=== PATIENT | male | born 1940 | race Caucasian/White ===

== ENCOUNTER 2018-09-17 12:57 | Inpatient (IN) | payer MEDICARE ==
[2018-09-17] MEDS ORDERED: HEPARIN SODIUM,PORCINE 10,000 UNIT/ML 1 ML VIAL IV STA (13:18)
--- NOTE | 2018-09-17 13:25 | ED ---
General Adult HPI - General Chief complaint: Shortness of Breath Stated complaint: Dyspnea Time Seen by Provider: 09/17/18 13:13 Source: patient, RN notes reviewed Mode of arrival: ambulatory Limitations: no limitations - History of Present Illness Initial comments: Patient is a pleasant 78-year-old male presenting to the emergency department with difficulty in breathing. Onset of symptoms was 2 weeks ago. Patient has had persistent symptoms since that time. Dyspnea does get worse with exertion. No chest pain. No leg pain or leg swelling. Patient does have history of pulmonary embolism with similar symptoms around 4 and half years ago. Patient did see his primary care physician and had outpatient computed tomography scan done that was concerning for pulmonary embolism and was advised come to the emergency department. - Related Data Home Medications Medication Instructions Recorded Confirmed Albuterol Sulfate [Proair 1 puff PO RT-Q6H PRN 09/17/18 09/17/18 Respiclick] Aspirin EC [Ecotrin Low Dose] 81 mg PO DAILY 09/17/18 09/17/18 Multivitamins, Thera [Multivitamin 1 tab PO DAILY 09/17/18 09/17/18 (formulary)] Tamsulosin [Flomax] 0.4 mg PO W/SUPPER 09/17/18 09/17/18 Allergies Allergy/AdvReac Type Severity Reaction Status Date / Time No Known Allergies Allergy Verified 09/17/18 13:44 Review of Systems ROS Statement: Those systems with pertinent positive or pertinent negative responses have been documented in the HPI. ROS Other: All systems not noted in ROS Statement are negative. Constitutional: Denies: fever Eyes: Denies: eye pain ENT: Denies: ear pain Respiratory: Reports: dyspnea. 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; skin ca History of Any Multi-Drug Resistant Organisms: None Reported Past Surgical History: Hernia Repair Additional Past Surgical History / Comment(s): cataracts, cyst removed rt chest area and left neck area, pre skin cancer removed, 02-16-14 RT LOWER LOBECTOMY D/T CA Past Anesthesia/Blood Transfusion Reactions: No Reported Reaction Additional Past Anesthesia/Blood Transfusion Reaction / Comment(s): motion sickness years ago Past Psychological History: No Psychological Hx Reported Smoking Status: Former smoker Past Alcohol Use History: None Reported Past Drug Use History: None Reported - Past Family History Mother Family Medical History: Cancer General Exam Limitations: no limitations General appearance: alert, in no apparent distress Head exam: Present: atraumatic Eye exam: Present: normal appearance Neck exam: Present: normal inspection Respiratory exam: Present: normal lung sounds bilaterally Cardiovascular Exam: Present: tachycardia GI/Abdominal exam: Present: soft. Absent: tenderness Extremities exam: Present: normal inspection. Absent: pedal edema, calf tenderness Neurological exam: Present: alert Psychiatric exam: Present: normal affect, normal mood Skin exam: Present: normal color Course Vital Signs 09/17/18 09/17/18 09/17/18 12:58 13:30 14:00 Temperature 98.1 F Pulse Rate 114 H 96 92 Respiratory 26 H 17 18 Rate Blood Pressure 154/90 128/79 134/73 O2 Sat by Pulse 97 97 97 Oximetry EKG Findings - EKG Comments: EKG Findings:: Normal sinus rhythm at 89. VA 164. QRS 70. QT 344. QTC 418. Normal axis. Normal QRS. No acute ST change. Medical Decision Making - Medical Decision Making Case was discussed with Dr. Wilkerson, who will admit. Patient has previously seen Dr. Salas. Patient is made aware of diagnosis and plan. - Lab Data Result diagrams: 09/17/18 13:26 09/17/18 13:26 Lab Results 09/17/18 09/17/18 09/17/18 Range/Units 13:26 13:26 13:26 WBC 8.2 (3.8-10.6) k/uL RBC 4.18 L (4.30-5.90) m/uL Hgb 13.1 (13.0-17.5) gm/dL Hct 39.5 (39.0-53.0) % MCV 94.5 (80.0-100.0) fL MCH 31.4 (25.0-35.0) pg MCHC 33.3 (31.0-37.0) g/dL RDW 12.8 (11.5-15.5) % Plt Count 289 (150-450) k/uL Neutrophils % 75 % Lymphocytes % 15 % Monocytes % 5 % Eosinophils % 3 % Basophils % 1 % Neutrophils # 6.2 (1.3-7.7) k/uL Lymphocytes # 1.2 (1.0-4.8) k/uL Monocytes # 0.4 (0-1.0) k/uL Eosinophils # 0.2 (0-0.7) k/uL Basophils # 0.1 (0-0.2) k/uL PT 9.6 (9.0-12.0) sec INR 0.9 (<1.2) APTT 21.0 L (22.0-30.0) sec Sodium 142 (137-145) mmol/L Potassium 4.5 (3.5-5.1) mmol/L Chloride 107 (98-107) mmol/L Carbon Dioxide 24 (22-30) mmol/L Anion Gap 11 mmol/L BUN 27 H (9-20) mg/dL Creatinine 1.20 (0.66-1.25) mg/dL Est GFR (CKD-EPI)AfAm 66 (>60 ml/min/1.73 sqM) Est GFR (CKD-EPI)NonAf 57 (>60 ml/min/1.73 sqM) Glucose 104 H (74-99) mg/dL Calcium 9.5 (8.4-10.2) mg/dL Total Bilirubin 0.5 (0.2-1.3) mg/dL AST 22 (17-59) U/L ALT 16 L (21-72) U/L Alkaline Phosphatase 83 (38-126) U/L Troponin I (0.000-0.034) ng/mL Total Protein 7.4 (6.3-8.2) g/dL Albumin 4.4 (3.5-5.0) g/dL 09/17/18 Range/Units 13:26 WBC (3.8-10.6) k/uL RBC (4.30-5.90) m/uL Hgb (13.0-17.5) gm/dL Hct (39.0-53.0) % MCV (80.0-100.0) fL MCH (25.0-35.0) pg MCHC (31.0-37.0) g/dL RDW (11.5-15.5) % Plt Count (150-450) k/uL Neutrophils % % Lymphocytes % % Monocytes % % Eosinophils % % Basophils % % Neutrophils # (1.3-7.7) k/uL Lymphocytes # (1.0-4.8) k/uL Monocytes # (0-1.0) k/uL Eosinophils # (0-0.7) k/uL Basophils # (0-0.2) k/uL PT (9.0-12.0) sec INR (<1.2) APTT (22.0-30.0) sec Sodium (137-145) mmol/L Potassium (3.5-5.1) mmol/L Chloride (98-107) mmol/L Carbon Dioxide (22-30) mmol/L Anion Gap mmol/L BUN (9-20) mg/dL Creatinine (0.66-1.25) mg/dL Est GFR (CKD-EPI)AfAm (>60 ml/min/1.73 sqM) Est GFR (CKD-EPI)NonAf (>60 ml/min/1.73 sqM) Glucose (74-99) mg/dL Calcium (8.4-10.2) mg/dL Total Bilirubin (0.2-1.3) mg/dL AST (17-59) U/L ALT (21-72) U/L Alkaline Phosphatase (38-126) U/L Troponin I <0.012 (0.000-0.034) ng/mL Total Protein (6.3-8.2) g/dL Albumin (3.5-5.0) g/dL - Radiology Data Radiology results: report reviewed (Computed tomography scan of the chest was positive for bilateral pulmonary emboli. No evidence of heart strain.) Critical Care Time Critical Care Time: Yes Total Critical Care Time: 33 Disposition Clinical Impression: Pulmonary embolism Disposition: ADMITTED IP TO THIS HOSP Condition: Serious Is patient prescribed a controlled substance at d/c from ED?: No Referrals: Arthur Monique MD [Primary Care Provider] - 1-2 days Decision Time: 15:08
[2018-09-17 13:40] LABS: Basophils # (A) 0.1 k/uL (0-0.2); Basophils % (A) 1 %; Eosinophils # (A) 0.2 k/uL (0-0.7); Eosinophils % (A) 3 %; HCT 39.5 % (39.0-53.0); HGB 13.1 gm/dL (13.0-17.5); Lymphocytes # (A) 1.2 k/uL (1.0-4.8); Lymphocytes % (A) 15 %; MCH 31.4 pg (25.0-35.0); MCHC 33.3 g/dL (31.0-37.0); MCV 94.5 fL (80.0-100.0); Mean Platelet Volume 6.8; Monocytes # (A) 0.4 k/uL (0-1.0); Monocytes % (A) 5 %; Neutrophils # (A) 6.2 k/uL (1.3-7.7); Neutrophils % (A) 75 %; Platelet Count 289 k/uL (150-450); RBC 4.18 m/uL (4.30-5.90); RDW 12.8 % (11.5-15.5); WBC 8.2 k/uL (3.8-10.6)
[2018-09-17 13:42] LABS: Albumin 4.4 g/dL (3.5-5.0); Calcium 9.5 mg/dL (8.4-10.2); Potassium 4.5 mmol/L (3.5-5.1); Total Bilirubin 0.5 mg/dL (0.2-1.3); Total Protein 7.4 g/dL (6.3-8.2)
[2018-09-17] MEDS: HEPARIN SOD,PORK IN 0.45% NACL 25,000 UNIT in 0.45% NACL 1 250ML.BAG IV SCH (13:45)
[2018-09-17 13:55] LABS: INR 0.9 (<1.2); Prothrombin Time 9.6 sec (9.0-12.0)
[2018-09-17] MEDS ORDERED: ALBUTEROL NEBULIZED 2.5 MG/3 ML INHALATION PRN (15:07)
[2018-09-17] MEDS ORDERED: NALOXONE 0.4 MG/ML 1 ML VIAL IV PRN (15:08)
--- NOTE | 2018-09-17 15:19 | P.HPIM ---
History of Present Illness H&P Date: 09/17/18 78 years old very pleasant patient of Dr. Monique with past medical history of PE in 2014, history of BPH is presents with shortness of breath for the past 2 weeks. Patient was seen in urgent care twice before seen by his primary care physician yesterday. Patient is physically very active and walk 10 miles 2 weeks ago and attributed the shortness of breath from overdoing. 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 Since his symptoms did not get better after treatment for bronchitis twice patient went to his primary care physician who suspected a pulmonary embolism and ordered a CTA. A she underwent CTA this morning and was called with abnormal results to come to the ER. He denies any palpitation but does endorse heaviness in his chest. He denies any history of coronary artery disease or previous stress test. Patient did have pulmonary embolism in 2013 with a DVT in his right lower extremity which appears to be unprovoked at that time. He was on blood thinner for over a year which was discontinued and currently patient is only on a baby aspirin. He denies any history of surgery or recent air travel. Patient denies any family history of blood disorder. 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 On evaluation of the vitals, patient has a temp of 98.1 heart rate 114 sinus tachycardia with respiratory rate of 26 blood pressure 154/90 labs suggest an unremarkable CBC, BNP suggestive BUN 27 creatinine 1.2 glucose 104 ALT of 14, troponin 0.012. CTA suggest bilateral pulmonary embolism with large pulmonary embolism in the mid to distal right pulmonary artery additional filling defects were seen in the segmental branch of the left upper lobe and right upper lobe CT findings were consistent with pulmonary artery hypertension no RV strain was seen. Patient also had emphysematous changes with right-sided volume loss with previous right partial pneumonectomy changes. He does have slight right-sided pleural effusion with pleural thickening involving the posterior surface of the right lower lung. Some peripheral reticulation and fibrosis is also noted in the right upper and mid lung. Patient is placed on heparin drip. Pulmonary gynecology is consulted for recurrent pulmonary embolism. Bilateral ultrasound Doppler lower extremity ordered to rule out DVT Review of Systems Constitutional: Denies chills, Denies fever, Denies lethargy, Denies malaise, Denies poor appetite, Denies weakness, Denies weight loss Eyes: denies decreased vision, denies diplopia, denies discharge, denies pain Ears: deny: decreased hearing Ears, nose, mouth and throat: Denies dental pain, Denies headache, Denies nasal discharge, Denies nose pain Cardiovascular: Denies chest pain, Denies decreased exercise tolerance, Denies edema, Denies high blood pressure, Denies irregular heart beat, Denies palpitations, Denies paroxysmal nocturnal dyspnea, Denies rapid heart beat, endorses shortness of breath Respiratory: Denies congestion, Denies cough, Denies cough with sputum, endorses dyspnea, Denies home oxygen, Denies wheezing Gastrointestinal: Denies abdominal pain, Denies change in bowel habits, Denies coffee ground emesis, Denies early satiety, Denies excessive gas, Denies heartburn, Denies hematemesis, Denies hematochezia, Denies loss of appetite, Denies nausea, Denies vomiting Genitourinary: Denies dysuria, Denies flank pain, Denies kidney stones, Denies menorrhagia, Denies urgency, Denies urinary frequency Musculoskeletal: Denies gait dysfunction, Denies limitation of motion, Denies morning stiffness, Denies muscle cramps Integumentary: Denies rash, Denies wounds, Denies brittle nails, Denies change in hair/nails, Denies darkening of skin Neurological: Denies balance difficulties, Denies change in speech, Denies double vision, Denies gait dysfunction, Denies loss of vision, Denies motor disturbance, Denies numbness, Denies paralysis, Denies paresthesias, Denies seizures Psychiatric: Denies anxiety, Denies depression Endocrine: Denies excessive sweating, Denies excessive thirst, Denies high blood sugars, Denies palpitations Hematologic/Lymphatic: Denies easy bruising, Denies lymphadenopathy Past Medical History Past Medical History: Deep Vein Thrombosis (DVT), Pulmonary Embolus (PE), Skin Disorder Additional Past Medical History / Comment(s): 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; skin ca History of Any Multi-Drug Resistant Organisms: None Reported Past Surgical History: Hernia Repair Additional Past Surgical History / Comment(s): cataracts, cyst removed rt chest area and left neck area, pre skin cancer removed, 12-9-14 RT LOWER LOBECTOMY D/T CA Past Anesthesia/Blood Transfusion Reactions: No Reported Reaction Additional Past Anesthesia/Blood Transfusion Reaction / Comment(s): motion sic kness years ago Past Psychological History: No Psychological Hx Reported Smoking Status: Former smoker Past Alcohol Use History: None Reported Past Drug Use History: None Reported - Past Family History Mother Family Medical History: Cancer Medications and Allergies Home Medications Medication Instructions Recorded Confirmed Type Albuterol Sulfate [Proair 1 puff PO RT-Q6H PRN 09/17/18 09/17/18 History Respiclick] Aspirin EC [Ecotrin Low Dose] 81 mg PO DAILY 09/17/18 09/17/18 History Multivitamins, Thera [Multivitamin 1 tab PO DAILY 09/17/18 09/17/18 History (formulary)] Tamsulosin [Flomax] 0.4 mg PO W/SUPPER 09/17/18 09/17/18 History Allergies Allergy/AdvReac Type Severity Reaction Status Date / Time No Known Allergies Allergy Verified 09/17/18 13:44 Physical Exam Vitals: Vital Signs Temp Pulse Resp BP Pulse Ox 09/17/18 14:00 92 18 134/73 97 09/17/18 13:30 96 17 128/79 97 09/17/18 12:58 98.1 F 114 H 26 H 154/90 97 Intake and Output 09/17/18 09/17/18 09/17/18 06:59 14:59 22:59 Other: Weight 65.771 kg - Constitutional General appearance: cooperative, no acute distress, thin - EENT Eyes: anicteric sclerae, PERRLA, normal appearance ENT: hearing grossly normal - Neck Neck: no lymphadenopathy, normal ROM, no other, no rigidity, no stridor, no thyromegaly - Respiratory Respiratory: bilateral: CTA, negative: diminished, dullness, rales, rhonchi - Cardiovascular Rhythm: regular Heart sounds: normal: S1, S2 Abnormal Heart Sounds: no systolic murmur, no diastolic murmur, no rub, no S3 Gallop, no S4 Gallop, no click, no other - Gastrointestinal General gastrointestinal: normal bowel sounds, soft - Integumentary Integumentary: no rash - Neurologic Neurologic: CNII-XII intact - Musculoskeletal Musculoskeletal: gait normal, strength equal bilaterally - Psychiatric Psychiatric: A&O x's 3, appropriate affect Results CBC & Chem 7: 09/17/18 13:26 09/17/18 13:26 Labs: Abnormal Lab Results - Last 24 Hours (Table) 09/17/18 09/17/18 09/17/18 Range/Units 13:26 13:26 13:26 RBC 4.18 L (4.30-5.90) m/uL APTT 21.0 L (22.0-30.0) sec BUN 27 H (9-20) mg/dL Glucose 104 H (74-99) mg/dL ALT 16 L (21-72) U/L Thrombosis Risk Factor Assmnt - DVT/VTE Prophylaxis DVT/VTE Prophylaxis: Pharmacologic Prophylaxis ordered Assessment and Plan Plan: #1 bilateral pulmonary embolism with no RV strain. Hemodynamically stable patient. Echo ordered to evaluate the right-sided pressures. Continue heparin drip. Patient would likely need lifelong anticoagulation as this is the second unprovoked episode. 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 Continue DuoNeb as needed for yolanda rtness of breath. Not in acute exacerbation
--- NOTE | 2018-09-17 15:57 | US ---
EXAMINATION TYPE: US venous doppler duplex LE DATE OF EXAM: 09/17/2018 3:47 PM COMPARISON: NONE CLINICAL HISTORY: PE . PE. Patient is on Heparin now. HX of DVT in right leg 2013. SIDE PERFORMED: Bilateral TECHNIQUE: The lower extremity deep venous system is examined utilizing real time linear array sonog stephan with graded compression, doppler sonography and color-flow sonography. VESSELS IMAGED: External Iliac Vein (EIV) Common Femoral Vein Deep Femoral Vein Greater Saphenous Vein * Femoral Vein Popliteal Vein Small Saphenous Vein * Proximal Calf Veins (* superficial vessels) Grayscale, color doppler, spectral doppler imaging performed of the deep veins of the lower extremiti es. There is normal flow, compressibility, vascular waveforms on the right. Right Leg: Negative for DVT Left Leg: Positive for DVT from Proximal Popliteal Vein to Proximal calf veins. Thready flow visual ized with internal echoes seen within, noncompressible. IMPRESSION: 1. Positive deep venous thrombosis extending from the popliteal vein to the proximal calf veins on th e left. The patient is currently on heparin with known prior DVT and current PE. 2. No sonographic evidence of deep venous thrombosis within the right lower extremity.
[2018-09-17] MEDS: SODIUM CHLORIDE 0.9% 1,000 ML IV SCH (15:58)
[2018-09-17] MEDS: TAMSULOSIN 0.4 MG CAP.ER.24H PO SCH (18:01)
[2018-09-18 06:27] LABS: Basophils # (A) 0.1 k/uL (0-0.2); Basophils % (A) 1 %; Eosinophils # (A) 0.3 k/uL (0-0.7); Eosinophils % (A) 6 %; HCT 31.8 % (39.0-53.0); HGB 10.4 gm/dL (13.0-17.5); Lymphocytes # (A) 1.4 k/uL (1.0-4.8); Lymphocytes % (A) 27 %; MCH 31.4 pg (25.0-35.0); MCHC 32.7 g/dL (31.0-37.0); MCV 95.9 fL (80.0-100.0); Mean Platelet Volume 7.1; Monocytes # (A) 0.3 k/uL (0-1.0); Monocytes % (A) 5 %; Neutrophils # (A) 3.1 k/uL (1.3-7.7); Neutrophils % (A) 58 %; Platelet Count 217 k/uL (150-450); RBC 3.32 m/uL (4.30-5.90); RDW 12.9 % (11.5-15.5); WBC 5.4 k/uL (3.8-10.6)
[2018-09-18 07:32] LABS: Albumin 3.2 g/dL (3.5-5.0); Calcium 8.8 mg/dL (8.4-10.2); Potassium 4.5 mmol/L (3.5-5.1); Total Bilirubin 0.4 mg/dL (0.2-1.3); Total Protein 5.7 g/dL (6.3-8.2)
--- NOTE | 2018-09-18 10:22 | ECHOF ---
Referral Reason:CHF MEASUREMENTS -------- HEIGHT: 180.3 cm WEIGHT: 65.8 kg BP: 122/82 IVSd: 1.5 cm (0.6 - 1.1) LVIDd: 3.4 cm (3.9 - 5.3) LVPWd: 1.6 cm (0.6 - 1.1) IVSs: 1.7 cm LVIDs: 2.0 cm LVPWs: 1.5 cm LAESV Index (A-L): 15.30 ml/m Ao Diam: 2.7 cm (2.0 - 3.7) AV Cusp: 1.9 cm (1.5 - 2.6) LA Diam: 3.1 cm (2.7 - 3.8) MV EXCURSION: 13.189 mm (> 18.000) MV EF SLOPE: 45 mm/s (70 - 150) EPSS: 1.6 cm MV E Francisco: 0.41 m/s MV DecT: 389 ms MV A Francisco: 0.62 m/s MV E/A Ratio: 0.67 AR PHT: 518 ms FINDINGS -------- Sinus rhythm. This was a technically difficult study with suboptimal parasternal views. The left ventricular size is normal. There is moderate concentric left ventricular hypertrophy. O verall left ventricular systolic function is normal with, an EF between 65 - 70 %. The right ventricle is normal in size. Normal LA size by volume 22+/-6 ml/m2. The right atrium was not well visualized. Lumason used Interatrial and interventricular septum intact. The aortic valve was not well visualized. Trace to mild aortic regurgitation. There is no evidenc e of aortic stenosis. No mitral regurgitation. Mild tricuspid regurgitation present. There is no evidence of pulmonary hypertension. The right v entricular systolic pressure, as measured by Doppler, is {RVSP}. The pulmonic valve was not well visualized. The aortic root size is normal. Normal inferior vena cava with normal inspiratory collapse consistent with estimated right atrial pre ssure of 5 mmHg. There is no pericardial effusion. CONCLUSIONS -------- 1. Sinus rhythm. 2. This was a technically difficult study with suboptimal parasternal views. 3. The left ventricular size is normal. 4. There is moderate concentric left ventricular hypertrophy. 5. Overall left ventricular systolic function is normal with, an EF between 65 - 70 %. 6. The right ventricle is normal in size. 7. Normal LA size by volume 22+/-6 ml/m2. 8. The right atrium was not well visualized. 9. Lumason used 10. Interatrial and interventricular septum intact. 11. The aortic valve was not well visualized. 12. Trace to mild aortic regurgitation. 13. There is no evidence of aortic stenosis. 14. No mitral regurgitation. 15. Mild tricuspid regurgitation present. 16. There is no evidence of pulmonary hypertension. 17. The right ventricular systolic pressure, as measured by Doppler, is {RVSP}. 18. The pulmonic valve was not well visualized. 19. The aortic root size is normal. 20. Normal inferior vena cava with normal inspiratory collapse consistent with estimated right atrial pressure of 5 mmHg. 21. There is no pericardial effusion. STUDIO DATA ANALYST: Sarai Bhakta RDCS
[2018-09-18 11:36] VITALS: RESP 18; TEMP 97.7
[2018-09-18] MEDS: HEPARIN SOD,PORK IN 0.45% NACL 25,000 UNIT in 0.45% NACL 1 250ML.BAG IV SCH (11:46)
[2018-09-18] MEDS: SODIUM CHLORIDE 0.9% 1,000 ML IV SCH (11:48)
[2018-09-18] MEDS: RIVAROXABAN 15 MG TAB PO SCH ×2 (12:33→16:17)
[2018-09-18] MEDS: IOPAMIDOL-300 CONTRAST 30 ML VIAL (ORAL USE) PO PRN ×2 (12:38→13:40)
--- NOTE | 2018-09-18 14:16 | P.CNPUL ---
History of Present Illness Consult date: 09/18/18 Requesting physician: Víctor Nicole Reason for consult: pulmonary embolism Chief complaint: Dyspnea, bilateral pulmonary embolisms History of present illness: This is a 78-year-old white male patient of Dr. 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 Patient is a former smoker, smoked less than a pack a day for 15 years, quit smoking 40 years ago. Other medical history includes atrial fibrillation back in 2013 after a diagnosis of pulmonary embolism, patient was anticoagulated with Xarelto, and completed his anticoagulation therapy. Patient presented to his primary care physician yesterday on 09/17/2018 with 2 week history of shortness of breath and some chest heaviness. Denied any hemoptysis, denied any lightheadedness or dizziness, denied any pain or swelling in his legs. He noticed significantly shortness of breath 2 weeks ago just walking from his bed to the bathroom, he had a 10 mile walk event, which he was able to complete but patient was in significant amount of respiratory difficulty. 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 He was treated in the urgent care clinic for debility of tracheobronchitis. However his symptoms did not improve and patient was seen by Dr. Lyon yesterday he suspected a pulmonary embolism and ordered a CT angiogram of the chest. CT angiogram showed bilateral pulmonary embolisms with large pulmonary embolism in the mid to distal right pulmonary artery with additional filling defects seen in the segmental branch of the left upper lobe and a right upper lobe. CT findings were consistent with pulmonary artery hypertension, but no RV strain was seen. Patient also had emphysematous changes with a right-sided volume loss with previous right partial pneumonectomy barrios es. There was a slight right sided pleural effusion with pleural thickening involving the posterior surface of the right lower lung. Bilateral ultrasound Dopplers of the lower extremities revealed a DVT in the left lower extremity extending from the popliteal vein to the proximal calf veins on the left. Echocardiogram was completed showing an EF between 65-70%, no evidence of PAH, trace to mild aortic regurgitation, normal inferior vena cava with normal respiratory collapse consistent with estimated right atrial pressure of 5 mmHg. And there was no pericardial effusion. EKG showed normal sinus rhythm. Patient has been started on heparin. Currently resting comfortably in bed, on room air, with a pulse ox of 96%, denies shortness of breath, denies any chest heaviness on today's exam, physical exam is unremarkable. Review of Systems All systems: negative Constitutional: Denies chills, Denies fever Eyes: denies blurred vision, denies pain Ears, nose, mouth and throat: Denies headache, Denies sore throat Cardiovascular: Denies chest pain, Denies shortness of breath Respiratory: Reports dyspnea, Denies cough Gastrointestinal: Denies abdominal pain, Denies diarrhea, Denies nausea, Denies vomiting Musculoskeletal: Denies myalgias Integumentary: Denies pruritus, Denies rash Neurological: Denies numbness, Denies weakness Psychiatric: Denies anxiety, Denies depression Endocrine: Denies fatigue, Denies weight change 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; skin ca History of Any Multi-Drug Resistant Organisms: None Reported Past Surgical History: Hernia Repair Additional Past Surgical History / Comment(s): cataracts, cyst removed rt chest area and left neck area, pre skin cancer removed, 02-16-14 RT LOWER LOBECTOMY D/T CA Past Anesthesia/Blood Transfusion Reactions: No Reported Reaction Additional Past Anesthesia/Blood Transfusion Reaction / Comment(s): motion sickness years ago Past Psychological History: No Psychological Hx Reported Smoking Status: Former smoker Past Alcohol Use History: None Reported Past Drug Use History: None Reported - Past Family History Mother Family Medical History: Cancer Medications and Allergies Home Medications Medication Instructions Recorded Confirmed Type Albuterol Sulfate [Proair 1 puff PO RT-Q6H PRN 09/17/18 09/17/18 History Respiclick] Aspirin EC [Ecotrin Low Dose] 81 mg PO DAILY 09/17/18 09/17/18 History Multivitamins, Thera [Multivitamin 1 tab PO DAILY 09/17/18 09/17/18 History (formulary)] Tamsulosin [Flomax] 0.4 mg PO W/SUPPER 09/17/18 09/17/18 History Rivaroxaban [Xarelto Starter Pack] 1 each PO DIRECTED #49 tab 09/18/18 Rx Allergies Allergy/AdvReac Type Severity Reaction Status Date / Time No Known Allergies Allergy Verified 09/17/18 13:44 Physical Exam Vitals: Vital Signs Temp Pulse Pulse Resp BP BP Pulse Ox 09/18/18 11:36 97.7 F 86 18 151/70 96 09/18/18 08:45 97.1 F L 73 22 139/69 100 09/18/18 04:00 97.6 F 64 18 117/70 98 09/17/18 23:13 63 18 09/17/18 23:11 98.2 F 63 18 124/74 97 09/17/18 20:09 98.1 F 74 18 153/74 97 09/17/18 20:00 74 18 09/17/18 18:30 98.2 F 09/17/18 18:01 90 19 130/66 96 09/17/18 15:48 76 18 122/82 98 09/17/18 14:00 92 18 134/73 97 Intake and Output 09/17/18 09/18/18 09/18/18 22:59 06:59 14:59 Intake Total 89.187 241.066 54.008 Output Total 350 Balance 89.187 -108.934 54.008 Intake: Intake, IV Titration 89.187 241.066 54.008 Amount Heparin Sod,Pork in 0.45% 89.187 81.066 54.008 NaCl 25,000 unit In 0.45 % NaCl 1 250ml.bag @ 18 UNITS/KG/HR 11.839 mls/hr IV .Q21H7M [facility] Rx#: [id number] Sodium Chloride 0.9% 1, 160 000 ml @ 20 mls/hr IV . Q24H [facility] Rx#:[id number] Output: Urine 350 Other: Voiding Method Urinal Urinal Toilet Urinal # Voids 1 Weight 55.9 kg GENERAL EXAM: Alert, pleasant, 78-year-old white male on room air, with a pulse ox of 96% comfortable in no apparent distress. HEAD: Normocephalic/atraumatic. EYES: Normal reaction of pupils, equal size. Conjunctiva pink, sclera white. NOSE: Clear with pink turbinates. THROAT: No erythema or exudates. NECK: No masses, no JVD, no thyroid enlargement, no adenopathy. CHEST: No chest wall deformity. Symmetrical expansion. LUNGS: Equal air entry with no crackles, wheeze, rhonchi or dullness. CVS: Regular rate and rhythm, normal S1 and S2, no gallops, no murmurs, no rubs ABDOMEN: Soft, nontender. No hepatosplenomegaly, normal bowel sounds, no guarding or rigidity. EXTREMITIES: No clubbing, no edema, no cyanosis, 2+ pulses and upper and lower extremities. MUSCULOSKELETAL: Muscle strength and tone normal. SPINE: No scoliosis or deformity SKIN: No rashes CENTRAL NERVOUS SYSTEM: Alert and oriented -3. No focal deficits, tone is norm al in all 4 extremities. PSYCHIATRIC: Alert and oriented -3. Appropriate affect. Intact judgment and insight. Results - Laboratory Findings CBC and BMP: 09/18/18 05:58 09/18/18 05:58 PT/INR, D-dimer PT 9.6 sec (9.0-12.0) 09/17/18 13:26 INR 0.9 (<1.2) 09/17/18 13:26 Abnormal lab findings: Abnormal Labs 09/17/18 09/17/18 09/17/18 13:26 13:26 13:26 RBC 4.18 L Hgb Hct APTT 21.0 L Chloride BUN 27 H Glucose 104 H ALT 16 L Total Protein Albumin 09/17/18 09/18/18 09/18/18 20:08 05:58 05:58 RBC 3.32 L Hgb 10.4 L Hct 31.8 L APTT 129.9 H* Chloride 110 H BUN 23 H Glucose ALT 20 L Total Protein 5.7 L Albumin 3.2 L 09/18/18 05:58 RBC Hgb Hct APTT 77.7 H Chloride BUN Glucose ALT Total Protein Albumin - Diagnostic Findings CT scan - chest: report reviewed, image reviewed Additional studies: Echocardiogram results reviewed, EKG reviewed Assessment and Plan Plan: Assessment: #1. Acute bilateral pulmonary emboli, unprovoked, with no evidence of RV strain on the CTA chest and the echocardiogram. This is second episode of pulmonary embolism/DVT. #2. 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 History of atrial fibrillation in 2014 following right lobectomy, patient denies any recurrence of atrial fibrillation #4. History of BPH, recently started on Flomax #5. Recent history of tooth extraction 2 weeks ago #6. Emphysematous changes seen on the CTA chest #7. History of nicotine dependence, currently in remission, patient carries 15 years of smoking of less than a pack a day quit smoking 40 years ago Plan: We'll continue with heparin, which the patient to Eliquis or Xarelto, continue with nebulized bronchodilators, CTA chest and echocardiogram did not show evidence of RV strain, and is hemodynamically stable, maintaining oxygenation on room air, hematology evaluation pending, and CT of abdomen and pelvis is pending. Patient will need lifelong anticoagulation for her history of recurrent pulmonary embolism and DVTs. I performed a history & physical examination of the patient and discussed their management with my nurse practitioner, Nancy Rosales. I reviewed the nurse practitioner's note and agree with the documented findings and plan of care. Lung sounds are positive for diminished breath sounds throughout the lung vogt. The findings and the impression was discussed with the patient. I attest to the documentation by the nurse practitioner. Time with Patient: Greater than 30
[2018-09-18 16:09] VITALS: BP 146/70; PULSE 70
[2018-09-18] MEDS: TAMSULOSIN 0.4 MG CAP.ER.24H PO SCH (16:17)
--- NOTE | 2018-09-18 16:54 | CT ---
EXAMINATION TYPE: CT abdomen pelvis w con DATE OF EXAM: 09/18/2018 COMPARISON: None HISTORY: Cancer recurrence. CT DLP: 615.2 mGycm Automated exposure control for dose reduction was used. TECHNIQUE: Helical acquisition of images was performed from the lung bases through the pelvis. CONTRAST: Performed with Oral Contrast and with IV Contrast, patient injected with 80 mL of Isovue 300. FINDINGS: There is small pleural effusion. There is a 2 cm partly calcified masslike density that is only incom pletely visualized at the right posterior lung base. Heart size is normal. There is no pericardial ef fusion. There is a 1 cm cyst in the inferior right lobe of the liver. The bile ducts are not dilated. Gallbla dder appears normal. Spleen appears normal. There is mild bulkiness of the pancreatic head. The body and tail of the pancreas appear fairly normal. Pancreatic duct not dilated. Stomach is normal size an d contour. There is no adrenal mass. There is some hypertrophy of the left adrenal gland. There is no hydronephr osis. Kidneys show satisfactory contrast opacification. Ureters are not dilated. There are small left -sided renal parapelvic cysts. There is no retroperitoneal adenopathy. Bladder distends smoothly. Pro state measures 5.5 cm. There is no inguinal hernia. There is no ascites. There is no evidence of free air. I see no mesenteric edema. The lumbar vertebra have normal alignment. There is narrowing at L5-S1 disc space. There is posterior disc herniation at L5-S1 with calcification. The bony pelvis appears intact. I see no focal bone ghanshyam truction. IMPRESSION: THERE IS SMALL MASSLIKE INFILTRATE RIGHT LOWER LOBE. THIS APPEARS UNCHANGED COMPARED TO CT SCAN YESTE RDAY. THERE IS MILD BULKINESS OF THE PANCREATIC HEAD WITHOUT A DISCRETE MASS SEEN. COMPARISON WITH AN OLD EXAM WOULD BE HELPFUL.
--- NOTE | 2018-09-19 00:25 | P.CONS ---
History of Present Illness - Reason for Consult Consult date: 09/19/18 recurrent PE. History of carcinoid - History of Present Illness the patient is a 78-year old white male with multiple medical issues. The patient had an unprovoked PE and left lower extremity DVT in July 2013. He was treated with xarelto at that time. He did not recall any provoking factors. He was subsequently found to have a right lung mass later in 2013 (12/22) and subsequently underwent resection with no additional treatment required. CT scans about 6 months after the PE or negative. The patient was therefore taken off anticoagulation after about a year. The patient came into the emergency room complaining of progressive shortness of breath, quite progressive over the past week. 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 In the emergency room CT revealed bilateral PE. Patient was started on IV heparin. Doppler showed persistent DVT involving the left popliteal and upper calf veins some 30 flow suggestive of a chronic process In doesn't appear that the patient has had any surveillance after surgery for his carcinoid. He has no family history of DVT or PE. He could not recall any provoking factors for this current event. Review of Systems Constitutional: Reports fatigue, Denies chills, Denies fever Eyes: denies blurred vision, denies pain Ears: deny: decreased hearing, ear discharge, earache, tinnitus Ears, nose, mouth and throat: Denies headache, Denies sore throat Cardiovascular: Reports shortness of breath Respiratory: Reports as per HPI Gastrointestinal: Denies abdominal pain, Denies diarrhea, Denies nausea, Denies vomiting Genitourinary: Reports as per HPI Musculoskeletal: Reports muscle weakness Integumentary: Denies pruritus, Denies rash Neurological: Reports weakness, Reports visual changes Psychiatric: Denies anxiety, Denies depression Endocrine: Reports fatigue, Denies weight change Hematologic/Lymphatic: Reports as per HPI 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; skin ca History of Any Multi-Drug Resistant Organisms: None Reported Past Surgical History: Hernia Repair Additional Past Surgical History / Comment(s): cataracts, cyst removed rt chest area and left neck area, pre skin cancer removed, 02-16-14 RT LOWER LOBECTOMY D/T CA Past Anesthesia/Blood Transfusion Reactions: No Reported Reaction Additional Past Anesthesia/Blood Transfusion Reaction / Comm: motion sickness years ago Past Psychological History: No Psychological Hx Reported Smoking Status: Former smoker Past Alcohol Use History: None Reported Past Drug Use History: None Reported - Past Family History Mother Family Medical History: Cancer Medications and Allergies Home Medications Medication Instructions Recorded Confirmed Type Albuterol Sulfate [Proair 1 puff PO RT-Q6H PRN 09/17/18 09/17/18 History Respiclick] Aspirin EC [Ecotrin Low Dose] 81 mg PO DAILY 09/17/18 09/17/18 History Multivitamins, Thera [Multivitamin 1 tab PO DAILY 09/17/18 09/17/18 History (formulary)] Tamsulosin [Flomax] 0.4 mg PO W/SUPPER 09/17/18 09/17/18 History Rivaroxaban [Xarelto Starter Pack] 1 each PO DIRECTED #49 tab 09/18/18 Rx Allergies Allergy/AdvReac Type Severity Reaction Status Date / Time No Known Allergies Allergy Verified 09/17/18 13:44 Physical Exam Vitals: Vital Signs Temp Pulse Resp BP Pulse Ox 09/18/18 16:08 97.7 F 70 18 146/70 100 09/18/18 16:04 86 18 09/18/18 11:36 97.7 F 86 18 151/70 96 09/18/18 08:45 97.1 F L 73 22 139/69 100 09/18/18 04:00 97.6 F 64 18 117/70 98 Intake and Output 09/18/18 09/18/18 09/19/18 14:59 22:59 06:59 Intake Total 894.008 Output Total 550 Balance 344.008 Intake: Intake, IV Titration 294.008 Amount Heparin Sod,Pork in 0.45% 54.008 NaCl 25,000 unit In 0.45 % NaCl 1 250ml.bag @ 18 UNITS/KG/HR 11.839 mls/hr IV .Q21H7M [facility] Rx#: [id number] Sodium Chloride 0.9% 1, 240 000 ml @ 20 mls/hr IV . Q24H [facility] Rx#:[id number] Oral 600 Output: Urine 550 Other: Voiding Method Toilet Toilet Urinal Urinal # Voids 2 # Bowel Movements 1 Results CBC & Chem 7: 09/18/18 05:58 09/18/18 05:58 Labs: Abnormal Lab Results - Last 24 Hours (Table) 09/18/18 09/18/18 09/18/18 Range/Units 05:58 05:58 05:58 RBC 3.32 L (4.30-5.90) m/uL Hgb 10.4 L (13.0-17.5) gm/dL Hct 31.8 L (39.0-53.0) % APTT 77.7 H (22.0-30.0) sec Chloride 110 H (98-107) mmol/L BUN 23 H (9-20) mg/dL ALT 20 L (21-72) U/L Total Protein 5.7 L (6.3-8.2) g/dL Albumin 3.2 L (3.5-5.0) g/dL Chest x-ray: report reviewed CT Scan - head: report reviewed Venous US: report reviewed Assessment and Plan (1) Pulmonary embolism Narrative/Plan: The patient has had a second episode of pulmonary embolus which is unprovoked. This is definitely a new occurrence, as CT scans in late 2013 after his initial be had not shown any residual thrombus. The patient is currently on IV heparin, which is quite appropriate in the inpatient setting. He can be transferred over to oral anticoagulant for discharge. One of the NOACs would be appropriate for him if covered. It was discussed with him that based on the clinical presentation, lifelong anticoagulation would be recommended as long as the patient had no tolerance issues. Given his prior history, CT of the abdomen and pelvis to be ordered to rule out recurrent malignancy. Chromogranin and serotonin level will also be ordered If workup for malignancy is negative another possibility could be an intrinsic hypercoagulable state. Testing for the same, as an outpatient was discussed. The patient was advised that the results would have no implications on his management but could potentially have implications for family members. He states that he had no biological children and only has one surviving sister he did therefore at this time is not sure if he would opt to do a hypercoagulable workup at all. Case discussed in detail with the admitting service. From our standpoint the patient never discharge on oral and declaration in follow-up in the office in about 4-5 weeks Status: Acute Code(s): I26.99 - OTHER PULMONARY EMBOLISM WITHOUT ACUTE COR PULMONALE SNOMED Code(s): 33037859 (2) Carcinoid tumor Narrative/Plan: Resection in 2013. This is usually curative for localized carcinoid. No carcinoid is less associated with risk of DVT/PE, given the patient's history it would be reasonable to restage him with CT scan of the abdomen and pelvis, as well as cytokine levels. If these are also negative and Octreoscan as an outpatient can be considered. If negative, continue to follow with observation until about 5 years post surgery for Status: Acute Code(s): D3A.00 - BENIGN CARCINOID TUMOR OF UNSPECIFIED SITE SNOMED Code(s): 121043327
--- NOTE | 2018-09-19 08:22 | P.DS ---
Providers Date of admission: 09/17/18 15:08 Expected date of discharge: 09/18/18 Attending physician: Víctor Nicole MD Consults: 09/17/18 15:08 Consult Physician Routine Consulting Provider: Cody Carrillo Consult Reason/Comments: B/l PE Do you want consulting provider notified?: Yes Consult Physician Routine Consulting Provider: Kendell Lennon Consult Reason/Comments: recurrent unprovoked PE Do you want consulting provider notified?: Yes Primary care physician: Arthur Monique [facility] Course: 78 years old very pleasant patient of Dr. Monique with past medical history of PE in 2014, history of BPH is presents with shortness of breath for the past 2 weeks. Patient was seen in urgent care twice before seen by his primary care physician yesterday. Patient is physically very active and walk 10 miles 2 weeks ago and attributed the shortness of breath from overdoing. 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 Since his symptoms did not get better after treatment for bronchitis twice patient went to his primary care physician who suspected a pulmonary embolism and ordered a CTA. A she underwent CTA this morning and was called with abnormal results to come to the ER. He denies any palpitation but does endorse heaviness in his chest. He denies any history of coronary artery disease or previous stress test. Patient did have pulmonary embolism in 2013 with a DVT in his right lower extremity which appears to be unprovoked at that time. He was on blood thinner for over a year which was discontinued and currently patient is only on a baby aspirin. He denies any history of surgery or recent air travel. Patient denies any family history of blood disorder. 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 On evaluation of the vitals, patient has a temp of 98.1 heart rate 114 sinus tachycardia with respiratory rate of 26 blood pressure 154/90 lab s suggest an unremarkable CBC, BNP suggestive BUN 27 creatinine 1.2 glucose 104 ALT of 14, troponin 0.012. CTA suggest bilateral pulmonary embolism with large pulmonary embolism in the mid to distal right pulmonary artery additional filling defects were seen in the segmental branch of the left upper lobe and right upper lobe CT findings were consistent with pulmonary artery hypertension no RV strain was seen. Patient also had emphysematous changes with right-sided volume loss with previous right partial pneumonectomy changes. He does have slight right-sided pleural effusion with pleural thickening involving the posterior surface of the right lower lung. Some peripheral reticulation and fibrosis is also noted in the right upper and mid lung. Patient is placed on heparin drip. Pulmonary gynecology is consulted for recurrent pulmonary embolism. Bilateral ultrasound Doppler lower extremity ordered to rule out DVT 09/18: Patient has been seen in consultation by pulmonary medicine and Dr. Lennon. CT of the abdomen and pelvis was ordered. Chromogranin and serotonin levels also ordered. Dr. Lennon's concern that malignancy as a cause for his DVT. If all workup for malignancy is negative physical be intrinsic hypercoagulopathy state. He will do outpatient testing as indicated. Patient is to follow-up with Dr. Lennon and 4-5 weeks. Regarding the carcinoid tumor, it is less associated with risk of DVT and PE. Plan to restage with CAT scan of the abdomen and pelvis as well as site candace levels. If these are negative and Octreoscan as an outpatient can be considered. Patient denies any new complaints. His shortness of breath is controlled. He is currently off oxygen and pulsating 96-100% on room air. He has been afebrile, heart rate in the 70s, blood pressure 146/70. A repeat lab work reveals hemoglobin of 10.4. BUN 23 and creatinine 1.18. The patient will be transitioned to Xarelto and discharge home later today. In stable condition. Venous Doppler duplex of the lower extremity bilaterally was positive for DVT popliteal vein on the left. No DVT on the right lower extremity. Echocardiogram revealed EF of 65-70% with moderate concentric left ventricular hypertrophy, trace to mild aortic regurgitation, no aortic stenosis, no mitral regurgitation, no tricuspid regurgitation no pulmonary hypertension estimated right atrial pressure 5 mmHg. No pericardial effusion. CT of the abdomen and pelvis revealed small masslike infiltrate in the right lower lobe. This appears unchanged compared to CAT scan yesterday. Mild bulkiness of the pancreatic head without a discrete mass seen. Comparison with old exam would be helpful. Discharge diagnoses: #1 bilateral pulmonary embolism with no RV strain. 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 Discharge plan: Return home Impression and plan of care have been directed as dictated by the signing physician. Anne-Marie Jacobs nurse practitioner acting as scribe for signing physician. Patient Condition at Discharge: Good Plan - Discharge Summary Discharge Rx Participant: No New Discharge Prescriptions: New Rivaroxaban [Xarelto Starter Pack] 1 each PO DIRECTED #49 tab No Action Multivitamins, Thera [Multivitamin (formulary)] 1 tab PO DAILY Aspirin EC [Ecotrin Low Dose] 81 mg PO DAILY Tamsulosin [Flomax] 0.4 mg PO W/SUPPER Albuterol Sulfate [Proair Respiclick] 1 puff PO RT-Q6H PRN PRN Reason: Shortness Of Breath Discharge Medication List Albuterol Sulfate [Proair Respiclick] 1 puff PO RT-Q6H PRN 09/17/18 [History] Aspirin EC [Ecotrin Low Dose] 81 mg PO DAILY 09/17/18 [History] Multivitamins, Thera [Multivitamin (formulary)] 1 tab PO DAILY 09/17/18 [History] Tamsulosin [Flomax] 0.4 mg PO W/SUPPER 09/17/18 [History] Rivaroxaban [Xarelto Starter Pack] 1 each PO DIRECTED #49 tab 09/18/18 [Rx] Follow up Appointment(s)/Referral(s): Kendell Lennon MD [STAFF PHYSICIAN] - 4 Weeks (Dr Lennon's office will follow-up with the patient to schedule an appointment after speaking with Dr Lennon.) Arthur Monique MD [Primary Care Provider] - 09/25/18 8:45 am (Appointment is with Olga GARCIA) Patient Instructions/Handouts: Pulmonary Embolism (DC) Activity/Diet/Wound Care/Special Instructions: Xarelto covered with a $40 copay Discharge Disposition: HOME SELF-CARE
[2018-09-22 20:10] LABS: Chromogranin A 357 ng/mL (0-95)
== END 2018-09-18 16:42 | disposition home or self-care (01) | DRG 176 ==
LOC: EC 12:57 → OBSVTOIN 15:08 → 3SCARD 15:08
PROVIDERS: ADMIT Internal Medicine; ATTEND Internal Medicine
DX: I26.99 Other pulmonary embolism without acute cor pulmonale (principal); I82.432 Acute embolism and thrombosis of left popliteal vein; I82.4Z2 Acute embolism and thrombosis of unspecified deep veins of left distal lower extremity; J43.9 Emphysema, unspecified; I35.1 Nonrheumatic aortic (valve) insufficiency; N40.0 Benign prostatic hyperplasia without lower urinary tract symptoms; L98.9 Disorder of the skin and subcutaneous tissue, unspecified; Z79.82 Long term (current) use of aspirin; Z79.899 Other long term (current) drug therapy; Z86.79 Personal history of other diseases of the circulatory system; Z87.891 Personal history of nicotine dependence; Z86.718 Personal history of other venous thrombosis and embolism; Z86.711 Personal history of pulmonary embolism; Z85.828 Personal history of other malignant neoplasm of skin; Z90.2 Acquired absence of lung [part of]; Z85.110 Personal history of malignant carcinoid tumor of bronchus and lung; Z98.890 Other specified postprocedural states; Z98.42 Cataract extraction status, left eye; Z98.41 Cataract extraction status, right eye; Z80.9 Family history of malignant neoplasm, unspecified
CPT/HCPCS: 36415; 71275; 74177; 80053; 82565; 84260; 84484; 84520; 85025; 85610; 85730; 86316; 93005; 93306; 93970; 96365; 96366; 96376; 99291

== ENCOUNTER → 2018-09-17 | Outpatient (CLI) | payer MEDICARE ==
--- NOTE | 2018-09-17 12:33 | CT ---
EXAMINATION TYPE: CT angio chest DATE OF EXAM: 09/17/2018 COMPARISON: CTA chest December 30, 2013 HISTORY: Shortness of breath CT DLP: 356 mGycm. Automated Exposure Control for Dose Reduction was Utilized. CONTRAST: CTA scan of the thorax is performed without and with IV Contrast, patient injected with 50 ml mL of I sovue 300, pulmonary embolism protocol. MIP Images are created on CT scanner and reviewed. FINDINGS: LUNGS: There is mild underlying emphysematous change with new right-sided volume loss as there is jeff pected interval surgery or partial pneumonectomy changes. There is small right pleural effusion or fl uid collection with pleural thickening posteriorly involving right lower lung. There are some periphe ral reticulation and fibrosis anterolaterally throughout the right upper to midlung. Left lung is hyp erexpanded. No new nodules or masses. No left-sided effusion. No pneumothorax is seen bilaterally. Ri ght apical scarring is present. MEDIASTINUM: There is satisfactory enhancement of the pulmonary artery and its branches, there is lar ge pulmonary embolism in the mid to distal right pulmonary artery image 73 with significant right bas ilar extension. There is additional filling defect or thrombus in the segmental branch left upper lob e axial image 65. There is from clot involvement in the right upper lobe pulmonary artery with segmen mitul extension left lower lobe show subsegmental thrombus coronal image 61 with subsegmental extension . There are no greater than 1 cm hilar or mediastinal lymph nodes. No cardiomegaly or pericardial effusion is seen. No suspicious right ventricular dilatation currently. Ascending aorta measures 3.7 cm at pulmonary bifurcation. Enlarged pulmonary arteries are noted, CT findings consistent with under lying pulmonary artery hypertension. OTHER: [id number] multilevel spurring in the spine is seen. IMPRESSION: Bilateral pulmonary emboli as detailed above with largest thrombus in the right pulmonary artery. No CT evidence for RV strain. Right long surgical change and volume loss with scattered fibr osis. Ordering physician office closed at time of dictation. Patient contacted directly at phone number on the order, discussed to come to emergency room for further workup and management. He said he will be here within 30 minutes. A [place] level critical message alert has been initiated for Arthur Monique MD via the [employer] System on 09/17/2018 12:30 PM. This message alert has been sent to Arthur Monique MD via the preferences provided by the clinician for the receipt of Radiology Critical Findings. Message ID [id number].
== END | disposition home or self-care (01) ==
LOC: RADCTMAIN 08:51
PROVIDERS: ATTEND Internal Medicine Geriatric Medicine
DX: I26.99 Other pulmonary embolism without acute cor pulmonale (principal)
CPT/HCPCS: 82565; 84520; 71275; 36415; Q9967

== ENCOUNTER → 2018-11-12 | Outpatient (CLI) | payer MEDICARE ==
--- NOTE | 2018-11-12 09:54 | MR ---
EXAMINATION TYPE: MR MRCP DATE OF EXAM: 11/12/2018 COMPARISON: CT scan 09/18/2018 HISTORY: Mass / Carcinoid tumor Standard multiplanar, multisequence MRI departmental protocol Multiplanar, multisequence images were acquired. FINDINGS: Note is made that the examination MRCP not a MRI of the abdomen. Within the liver there is a small 5 mm cyst posterior segment right lobe. Tiny punctate 2 mm dome of the liver cyst also suspected. Heart is enlarged. Stable thickening of the left adrenal gland. Right adrenal gland normal morphology . No hydronephrosis or renal mass. Aorta of normal caliber. Bowel gas pattern nonspecific. No abnorma l signal within the visualized bone marrow. Degenerative disc disease and curvature of the spine note d. Increase is homogeneous in signal without evidence of discrete mass. There is no evidence of biliary dilation. Common bile duct including the intrahepatic and extra hepatic bile ducts are within normal limits. IMPRESSION: 1. No evidence of biliary duct obstruction. 2. Right lower lobe consolidation or small effusion with calcified mass stable from recent CT scan.
== END | disposition home or self-care (01) ==
LOC: RADMRIMAIN 08:32
PROVIDERS: ATTEND Internal Medicine Hematology & Oncology
DX: C7A.090 Malignant carcinoid tumor of the bronchus and lung (principal)
CPT/HCPCS: 74181

== ENCOUNTER → 2019-04-20 | Outpatient (CLI) | payer MEDICARE ==
--- NOTE | 2019-04-20 09:24 | US ---
EXAMINATION TYPE: US venous doppler duplex LE BI DATE OF EXAM: 04/20/2019 8:14 AM COMPARISON: 09/17/2018 CLINICAL HISTORY: I26.99 Pulmonary Embolism, I82.5Z9 DVT. SIDE PERFORMED: Bilateral TECHNIQUE: The lower extremity deep venous system is examined utilizing real time linear array sonog stephan with graded compression, doppler sonography and color-flow sonography. VESSELS IMAGED: External Iliac Vein (EIV) Common Femoral Vein Deep Femoral Vein Greater Saphenous Vein * Femoral Vein Popliteal Vein Small Saphenous Vein * Proximal Calf Veins (* superficial vessels) Right Leg: Negative for DVT Left Leg: Chronic changes appear at mid/distal popliteal vein. The vein is smaller in caliber, with some internal echoes here and not completely compressible. IMPRESSION: 1. No sonographic evidence of deep venous thrombosis within the right lower extremity. 2. 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
--- NOTE | 2019-04-20 14:20 | CT ---
CT CHEST FOR PULMONARY EMBOLISM. EXAMINATION TYPE: CT angio chest DATE OF EXAM: 04/20/2019 INDICATION: History of PE and lung CA CT DLP: 359 mGycm, Automated exposure control for dose reduction was used. CONTRAST: Patient injected with 80 mL of Isovue 370. COMPARISON: 09/17/2018 TECHNIQUE: CT of the chest is performed on a spiral scan at 2 mm thick sections. Study is performed with intravenous contrast timed for evaluation for pulmonary embolism. This will limit additional po rtions of the evaluation. 3-D MIP images reconstructed by the technologist are reviewed on the compu ter in the coronal and sagittal planes. FINDINGS: No persistent filling defects are evident to suggest an acute pulmonary embolism. Previous large righ t apical pulmonary embolism is resolved. No mediastinal or hilar adenopathy enlarged by CT criteria is evident. The ascending aorta diameter at the level of the main pulmonary artery is 3.8 cm. The main pulmonary artery diameter at the bifur cation is 3.0 cm. There is an area of increased density within the posterior medial right midlung measuring 2.5 x 1.5 c m in size. This may has some vascular enhancement or calcification. Series 5 image 96. Some diffuse p leural thickening and/or small pleural effusion may be adjacent. Limited CT section through the upper abdomen. Mild diffuse thickening of the left adrenal gland 1.3 c m. Tiny hepatic cyst may be at the inferior right tip of the liver. IMPRESSIONS: 1. No pulmonary embolism. 2. Persistent posterior medial right midlung mass.
== END | disposition home or self-care (01) ==
LOC: RADUSMAIN 07:27
PROVIDERS: ATTEND Internal Medicine Hematology & Oncology
DX: I82.532 Chronic embolism and thrombosis of left popliteal vein (principal); I26.99 Other pulmonary embolism without acute cor pulmonale
CPT/HCPCS: 82565; 84520; 93970; 71275; Q9967

== ENCOUNTER 2019-12-30 00:13 | Emergency (ER) | payer MEDICARE ==
[2019-12-30 00:20] VITALS: RESP 18
--- NOTE | 2019-12-30 01:27 | XR ---
EXAM: XR Abdomen, 1 View CLINICAL HISTORY: ITS.REASON XR Reason: abdominal pain TECHNIQUE: Frontal supine view of the abdomen/pelvis. COMPARISON: No relevant prior studies available. FINDINGS: Intraperitoneal space: Gas fluid levels and mildly dilated small bowel in the mid to upper abdomen consistent with distal small bowel obstruction, less likely a severe ileus. No pneumoperitoneum is identified. Gastrointestinal tract: Moderate mid of stool in a distended but nondilated colon suggesting constipation. Bones/joints: Unremarkable. IMPRESSION: 1. Gas fluid levels and mildly dilated small bowel in the mid to upper abdomen consistent with distal small bowel obstruction, less likely a severe ileus. No pneumoperitoneum is identified. 2. Moderate mid of stool in a distended but nondilated colon suggesting constipation.
[2019-12-30] MEDS ORDERED: MAGNESIUM CITRATE 296 ML BOTTLE PO ONE (03:07)
--- NOTE | 2019-12-30 03:08 | ED ---
Abdominal Pain HPI - General Chief Complaint: Abdominal Pain Stated Complaint: Abdominal Pain Time Seen by Provider: 12/30/19 00:24 Source: patient Mode of arrival: ambulatory Limitations: no limitations - History of Present Illness Initial Comments: This patient is an 79-year-old man who presents to be evaluated for what he believes is constipation. The patient states that it has been probably about 2 days since he had a bowel movement. He states that he was having low abdominal pain was crampy in nature. That has improved but he does have fullness and a bloated feeling. He denies nausea or vomiting. He denies zoltan abdominal pain. MD Complaint: abdominal pain -: hour(s) Location: LLQ, RLQ Radiation: none Severity: moderate Quality: cramping, fullness Consistency: colicky Improves With: nothing Worsens With: nothing Associated Symptoms: denies other symptoms - Related Data Home Medications Medication Instructions Recorded Confirmed Albuterol Sulfate [Proair 1 puff PO RT-Q6H PRN 09/17/18 09/17/18 Respiclick] Aspirin EC [Ecotrin Low Dose] 81 mg PO DAILY 09/17/18 09/17/18 Multivitamins, Thera [Multivitamin 1 tab PO DAILY 09/17/18 09/17/18 (formulary)] Tamsulosin [Flomax] 0.4 mg PO W/SUPPER 09/17/18 09/17/18 Previous Rx's Medication Instructions Recorded Rivaroxaban [Xarelto Starter Pack] 1 each PO DIRECTED #49 tab 09/18/18 Allergies Allergy/AdvReac Type Severity Reaction Status Date / Time No Known Allergies Allergy Verified 12/30/19 00:19 Review of Systems ROS Statement: Those systems with pertinent positive or pertinent negative responses have been documented in the HPI. ROS Other: All systems not noted in ROS Statement are negative. Constitutional: Denies: fever, chills Respiratory: Denies: cough, dyspnea Cardiovascular: Denies: chest pain, palpitations, edema Gastrointestinal: Reports: abdominal pain, constipation. Denies: nausea, vomiting, diarrhea, melena, hematochezia Genitourinary: Denies: dysuria, hematuria Musculoskeletal: Denies: back pain Skin: Denies: rash Neurological: Denies: headache 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; skin ca History of Any Multi-Drug Resistant Organisms: None Reported Past Surgical History: Hernia Repair Additional Past Surgical History / Comment(s): cataracts, cyst removed rt chest area and left neck area, pre skin cancer removed, 02-16-14 RT LOWER LOBECTOMY D/T CA Past Anesthesia/Blood Transfusion Reactions: No Reported Reaction Additional Past Anesthesia/Blood Transfusion Reaction / Comment(s): motion sickness years ago Past Psychological History: No Psychological Hx Reported Smoking Status: Never smoker Past Alcohol Use History: None Reported Past Drug Use History: None Reported - Past Family History Mother Family Medical History: Cancer General Exam Limitations: no limitations General appearance: alert, in no apparent distress Head exam: Present: atraumatic, normocephalic Respiratory exam: Present: normal lung sounds bilaterally. Absent: respiratory distress, wheezes, rales, rhonchi, stridor Cardiovascular Exam: Present: regular rate, normal rhythm, normal heart sounds. Absent: systolic murmur, diastolic murmur, rubs, gallop GI/Abdominal exam: Present: soft, normal bowel sounds. Absent: distended, te nderness, guarding, rebound, rigid, mass, pulsatile mass, hernia Extremities exam: Present: normal inspection, normal capillary refill. Absent: pedal edema, calf tenderness Back exam: Present: normal inspection. Absent: CVA tenderness (R), CVA tenderness (L) Neurological exam: Present: alert Skin exam: Present: warm, dry, intact, normal color. Absent: rash Course Vital Signs 12/30/19 12/30/19 00:18 03:21 Temperature 97.7 F 98.2 F Pulse Rate 104 H 55 L Respiratory 18 18 Rate Blood Pressure 134/86 154/69 O2 Sat by Pulse 94 L 100 Oximetry Disposition Clinical Impression: Constipation Disposition: HOME SELF-CARE Condition: Good Instructions (If sedation given, give patient instructions): Constipation (DC) Is patient prescribed a controlled substance at d/c from ED?: No Referrals: Arthur Monique MD [Primary Care Provider] - 1-2 days
[2019-12-30 03:23] VITALS: BP 154/69; PULSE 55; TEMP 98.2
== END 2019-12-30 03:23 | disposition home or self-care (01) ==
LOC: EC 00:13
DX: K59.00 Constipation, unspecified (principal); I48.91 Unspecified atrial fibrillation; Z79.82 Long term (current) use of aspirin; Z85.828 Personal history of other malignant neoplasm of skin; Z86.711 Personal history of pulmonary embolism; Z86.718 Personal history of other venous thrombosis and embolism
CPT/HCPCS: 74018; 99284

== ENCOUNTER 2019-12-30 17:20 | Inpatient (IN) | payer MEDICARE ==
[2019-12-30] MEDS ORDERED: KETOROLAC 15 MG/ML 1 ML VIAL IVP STA (18:17)
[2019-12-30] MEDS ORDERED: SODIUM CHLORIDE 0.9% 500 ML 500 ML IV STA (18:17)
[2019-12-30 18:51] LABS: Basophils # (A) 0.1 k/uL (0-0.2); Basophils % (A) 1 %; Eosinophils # (A) 0.1 k/uL (0-0.7); Eosinophils % (A) 1 %; HCT 43.5 % (39.0-53.0); Lymphocytes # (A) 0.7 k/uL (1.0-4.8); Lymphocytes % (A) 8 %; MCH 31.4 pg (25.0-35.0); MCHC 32.1 g/dL (31.0-37.0); MCV 97.7 fL (80.0-100.0); Mean Platelet Volume 7.3; Monocytes # (A) 0.3 k/uL (0-1.0); Monocytes % (A) 3 %; Neutrophils # (A) 7.6 k/uL (1.3-7.7); Neutrophils % (A) 87 %; Platelet Count 254 k/uL (150-450); RBC 4.45 m/uL (4.30-5.90); RDW 13.1 % (11.5-15.5); WBC 8.8 k/uL (3.8-10.6)
[2019-12-30 18:59] LABS: Albumin 4.4 g/dL (3.5-5.0); Calcium 10.7 mg/dL (8.4-10.2); Potassium 4.5 mmol/L (3.5-5.1); Total Protein 7.3 g/dL (6.3-8.2)
--- NOTE | 2019-12-30 19:07 | ED ---
General Adult HPI - General Chief complaint: Abdominal Pain Stated complaint: constipation-revisit Time Seen by Provider: 12/30/19 17:28 Source: patient, RN notes reviewed Mode of arrival: ambulatory Limitations: no limitations - History of Present Illness Initial comments: 79-year-old male presents to the emergency room for a chief complaint of abdomin al pain. Patient reports that he has had abdominal discomfort since about 3 PM yesterday. Patient reports his last bowel movement prior to that was about 2-3 days ago. Patient states he was seen in the emergency room last night and diagnosed with constipation, given an enema for which she did have a bowel movement. Patient states he did feel better at that time however after he went home and continued to have abdominal discomfort. He drank magnesium citrate as directed but unfortunately vomited this up. Patient returns today as his abdominal pain is improved. Denies fevers or diarrhea.Patient has no other complaints at this time including shortness of breath, chest pain, nausea or vom iting, headache, or visual changes. - Related Data Home Medications Medication Instructions Recorded Confirmed Albuterol Sulfate [Proair 2 puff INHALATION RT-Q4H PRN 09/17/18 12/30/19 Respiclick] Aspirin EC [Ecotrin Low Dose] 81 mg PO AC-SUPPER 09/17/18 12/30/19 Multivitamins, Thera [Multivitamin 1 tab PO DAILY 09/17/18 12/30/19 (formulary)] Tamsulosin [Flomax] 0.4 mg PO PC-SUPPER 09/17/18 12/30/19 Rivaroxaban [Xarelto] 20 mg PO AC-SUPPER 12/30/19 12/30/19 Allergies Allergy/AdvReac Type Severity Reaction Status Date / Time No Known Allergies Allergy Verified 12/30/19 18:23 Review of Systems ROS Statement: Those systems with pertinent positive or pertinent negative responses have been documented in the HPI. ROS Other: All systems not noted in ROS Statement are negative. 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; skin ca History of Any Multi-Drug Resistant Organisms: None Reported Past Surgical History: Hernia Repair Additional Past Surgical History / Comment(s): cataracts, cyst removed rt chest area and left neck area, pre skin cancer removed, 02-16-14 RT LOWER LOBECTOMY D/T CA Past Anesthesia/Blood Transfusion Reactions: No Reported Reaction Additional Past Anesthesia/Blood Transfusion Reaction / Comment(s): motion sickness years ago Past Psychological History: No Psychological Hx Reported Smoking Status: Never smoker Past Alcohol Use History: None Reported Past Drug Use History: None Reported - Past Family History Mother Family Medical History: Cancer General Exam Limitations: no limitations General appearance: alert, in no apparent distress Head exam: Present: atraumatic, normocephalic, normal inspection Eye exam: Present: normal appearance, PERRL, EOMI. Absent: scleral icterus, conjunctival injection, periorbital swelling ENT exam: Present: normal exam, mucous membranes moist Neck exam: Present: normal inspection, full ROM. Absent: tenderness, meningismus, lymphadenopathy Respiratory exam: Present: normal lung sounds bilaterally. Absent: respiratory distress, wheezes, rales, rhonchi, stridor Cardiovascular Exam: Present: regular rate, normal rhythm, normal heart sounds. Absent: systolic murmur, diastolic murmur, rubs, gallop, clicks GI/Abdominal exam: Present: soft, normal bowel sounds. Absent: distended, tenderness, guarding, rebound, rigid Neurological exam: Present: alert Course Vital Signs 12/30/19 17:21 Temperature 98.9 F Pulse Rate 59 L Respiratory 16 Rate Blood Pressure 137/76 O2 Sat by Pulse 99 Oximetry Medical Decision Making - Medical Decision Making Vitals are stable. CBC CMP unremarkable. Urinalysis does show 2+ ketones which is likely related to dehydration as patient has not been able to drink anything today. Patient did have an enema yesterday which produces small bowel movement. However vomited up the magnesium citrate. States he has not passed gas all day. CT abdomen and pelvis was obtained which showed a high-grade partial distal small bowel obstruction. Dr. PALACIO and spoke with Dr. Caldwell. NG tube was initiated. She did accept this admission. - Lab Data Result diagrams: 12/30/19 18:42 12/30/19 18:42 Lab Results 12/30/19 12/30/19 12/30/19 Range/Units 18:42 18:42 18:42 WBC 8.8 (3.8-10.6) k/uL RBC 4.45 (4.30-5.90) m/uL Hgb 14.0 (13.0-17.5) gm/dL Hct 43.5 (39.0-53.0) % MCV 97.7 (80.0-100.0) fL MCH 31.4 (25.0-35.0) pg MCHC 32.1 (31.0-37.0) g/dL RDW 13.1 (11.5-15.5) % Plt Count 254 (150-450) k/uL Neutrophils % 87 % Lymphocytes % 8 % Monocytes % 3 % Eosinophils % 1 % Basophils % 1 % Neutrophils # 7.6 (1.3-7.7) k/uL Lymphocytes # 0.7 L (1.0-4.8) k/uL Monocytes # 0.3 (0-1.0) k/uL Eosinophils # 0.1 (0-0.7) k/uL Basophils # 0.1 (0-0.2) k/uL Sodium 137 (137-145) mmol/L Potassium 4.5 (3.5-5.1) mmol/L Chloride 97 L (98-107) mmol/L Carbon Dioxide 29 (22-30) mmol/L Anion Gap 11 mmol/L BUN 26 H (9-20) mg/dL Creatinine 1.32 H (0.66-1.25) mg/dL Est GFR (CKD-EPI)AfAm 59 (>60 ml/min/1.73 sqM) Est GFR (CKD-EPI)NonAf 51 (>60 ml/min/1.73 sqM) Glucose 142 H (74-99) mg/dL Plasma Lactic Acid Collins 1.4 (0.7-2.0) mmol/L Calcium 10.7 H (8.4-10.2) mg/dL Total Bilirubin 1.0 (0.2-1.3) mg/dL AST 25 (17-59) U/L ALT 17 (4-49) U/L Alkaline Phosphatase 69 (38-126) U/L Total Protein 7.3 (6.3-8.2) g/dL Albumin 4.4 (3.5-5.0) g/dL Amylase 74 (30-110) U/L Lipase 32 (23-300) U/L Urine Color Urine Appearance (Clear) Urine pH (5.0-8.0) Ur Specific Norman (1.001-1.035) Urine Protein (Negative) Urine Glucose (UA) (Negative) Urine Ketones (Negative) Urine Blood (Negative) Urine Nitrite (Negative) Urine Bilirubin (Negative) Urine Urobilinogen (<2.0) mg/dL Ur Leukocyte Esterase (Negative) 12/30/19 Range/Units 20:37 WBC (3.8-10.6) k/uL RBC (4.30-5.90) m/uL Hgb (13.0-17.5) gm/dL Hct (39.0-53.0) % MCV (80.0-100.0) fL MCH (25.0-35.0) pg MCHC (31.0-37.0) g/dL RDW (11.5-15.5) % Plt Count (150-450) k/uL Neutrophils % % Lymphocytes % % Monocytes % % Eosinophils % % Basophils % % Neutrophils # (1.3-7.7) k/uL Lymphocytes # (1.0-4.8) k/uL Monocytes # (0-1.0) k/uL Eosinophils # (0-0.7) k/uL Basophils # (0-0.2) k/uL Sodium (137-145) mmol/L Potassium (3.5-5.1) mmol/L Chloride (98-107) mmol/L Carbon Dioxide (22-30) mmol/L Anion Gap mmol/L BUN (9-20) mg/dL Creatinine (0.66-1.25) mg/dL Est GFR (CKD-EPI)AfAm (>60 ml/min/1.73 sqM) Est GFR (CKD-EPI)NonAf (>60 ml/min/1.73 sqM) Glucose (74-99) mg/dL Plasma Lactic Acid Collins (0.7-2.0) mmol/L Calcium (8.4-10.2) mg/dL Total Bilirubin (0.2-1.3) mg/dL AST (17-59) U/L ALT (4-49) U/L Alkaline Phosphatase (38-126) U/L Total Protein (6.3-8.2) g/dL Albumin (3.5-5.0) g/dL Amylase (30-110) U/L Lipase (23-300) U/L Urine Color Yellow Urine Appearance Clear (Clear) Urine pH 8.0 (5.0-8.0) Ur Specific Norman >1.050 H (1.001-1.035) Urine Protein Trace H (Negative) Urine Glucose (UA) Negative (Negative) Urine Ketones 2+ H (Negative) Urine Blood Negative (Negative) Urine Nitrite Negative (Negative) Urine Bilirubin Negative (Negative) Urine Urobilinogen <2.0 (<2.0) mg/dL Ur Leukocyte Esterase Negative (Negative) Disposition Clinical Impression: Small bowel obstruction Disposition: ADMITTED IP TO THIS HOSP Condition: Fair Is patient prescribed a controlled substance at d/c from ED?: No Referrals: Arthur Monique MD [Primary Care Provider] - 1-2 days Time of Disposition: 21:50
--- NOTE | 2019-12-30 20:44 | CT ---
EXAMINATION TYPE: CT abdomen pelvis w con DATE OF EXAM: 12/30/2019 COMPARISON: 09/18/2018. HISTORY: abd pain hx lung/skin ca hernia repair rt lower lobectomy CT DLP: 672 mGycm Automated exposure control for dose reduction was used. TECHNIQUE: Helical acquisition of images was performed from the lung bases through the pelvis. CONTRAST: Performed without Oral Contrast and with IV Contrast, patient injected with 80 mL of Isovue 300. FINDINGS: LUNG BASES: No significant abnormality is appreciated. Stable right basilar scarring and calcificatio n noted in keeping with prior post surgical changes. LIVER/GB: No acute abnormality is appreciated. 6 mm right hepatic low attenuating focus without suspi cious features and suggestive of benign cyst. PANCREAS: No significant abnormality is seen. SPLEEN: No significant abnormality is seen. ADRENALS: No significant abnormality is seen. KIDNEYS: No significant abnormality is seen. FREE AIR: No free air is visualized. RETROPERITONEAL ADENOPATHY: None visualized REPRODUCTIVE ORGANS: No significant abnormality is seen URINARY BLADDER: No significant abnormality is seen. PELVIC ADENOPATHY: None visualized. OSSEOUS STRUCTURES: No significant abnormality is seen. BOWEL: Diffuse moderate dilatation of the mid to distal small bowel loops which transitions points s een in the right upper quadrant. Redemonstrated leftward deviation of the right colon. Small pelvic f ree fluid. No free air. OTHER: None. IMPRESSION: HIGH-GRADE PARTIAL DISTAL SMALL BOWEL OBSTRUCTION. SMALL FREE FLUID. NO FREE AIR. STABLE RIGHT LOWER LOBE POST SURGICAL CHANGES.
[2019-12-30 21:11] LABS: Appearance,Urine Clear (Clear); Bilirubin,Urine Negative (Negative); Blood,Urine Negative (Negative); Color,Urine Yellow; Glucose,Urine (UA) Negative (Negative); Ketones,Urine 2+ (Negative); Leukocyte Esterase,Urine Negative (Negative); Nitrite,Urine Negative (Negative); Protein,Urine Trace (Negative); Urobilinogen,Urine <2.0 mg/dL (<2.0)
[2019-12-30 21:12] LABS: Specific Gravity,Urine >1.050 (1.001-1.035)
[2019-12-30] MEDS ORDERED: HYDROmorphone 0.5 MG/0.5 ML SYRINGE IVP PRN (21:47)
[2019-12-30] MEDS ORDERED: ONDANSETRON 4 MG/2 ML VIAL IVP PRN (21:47)
[2019-12-30] MEDS ORDERED: NALOXONE 0.4 MG/ML 1 ML VIAL IV PRN (21:47)
[2019-12-30] MEDS ORDERED: LORazepam 2 MG/ML INJ IV STA (22:15)
--- NOTE | 2019-12-30 22:58 | XR ---
EXAMINATION TYPE: XR chest 1V confirm line [facility] DATE OF EXAM: 12/30/2019 COMPARISON: 03/17/2014 HISTORY: Cough. Short of breath. TECHNIQUE: 2 views FINDINGS: There is nasogastric tube looped in the stomach. Heart size is normal. There are no hilar m asses. There is thoracic dextroscoliosis. Lungs are clear of consolidation. There is very slight blunting right costophrenic angle. IMPRESSION: No active cardiopulmonary disease. NG tube in good position in the gastric fundus. There is some mild pleural reaction right lung base improved compared to old exam.
[2019-12-30] MEDS: SODIUM CHLORIDE 0.9% 1,000 ML IV SCH (23:36)
[2019-12-31] MEDS: SODIUM CHLORIDE 0.9% 1,000 ML IV SCH ×2 (09:09→18:06)
--- NOTE | 2019-12-31 11:50 | P.GSHP ---
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 Patient presents to the emergency room with complaints of abdominal discomfort. He reports that symptoms initially started on Saturday. He was having abdominal discomfort and some constipation. It had been 2 days since his last bowel movement. 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 He reports that he was given an enema And did have small results. His abdominal discomfort has shown improvement and he was discharged home from the ER and given magnesium citrate to take at home. Patient then reports having no bowel movement with the magnesium citrate and then he started vomiting. His stomach became bloated and was having abdominal discomfort. He came back into the emergency room for further evaluation and treatment. Computed tomography scan of the abdomen and pelvis shows a high-grade partial distal small bowel obstruction. Small free fluid. No free air. Stable right lower lobe post surgical changes. Patient did have NG tube placed. His abdominal discomfort has shown improvement. He denies any fever, chills or sweats. PAST MEDICAL HISTORY: See list. PAST SURGICAL HISTORY: See list. MEDICATIONS: See list. ALLERGIES: See list. SOCIAL HISTORY: No illicit drug use. REVIEW OF SYSTEMS: CONSTITUTIONAL: Denies fever or chills. HEENT: Denies blurred vision, vision changes, or eye pain. Denies hemoptysis ENDOCRINE: Denies heat or cold intolerance. CARDIOVASCULAR: Denies chest pain or pressure. RESPIRATORY: No shortness of breath. GASTROINTESTINAL: Denies abdominal pain. Denies nausea or vomiting. NEURO: Denies history of seizures. PSYCH: No depression or suicidal ideation HEMATOLOGIC: Denies bleeding disorders. LYMPHATIC: The patient denies any lumps and bumps around the neck. GENITOURINARY: Denies any blood in urine or increased urinary frequency. MUSCULOSKELETAL: Denies myalgias. Denies joint swelling. Denies decreased range of motion beyond patients baseline. SKIN: Denies pruitis. Denies rash. PHYSICAL EXAM: VITAL SIGNS: Reviewed GENERAL: Well-developed in no acute distress. HEENT: No sclera icterus. Extraocular movements grossly intact. Moist buccal mucosa. Head is atraumatic, normocephalic. Hears conversational speech. No nasal drainage. NECK: Supple without lymphadenopathy. CHEST: Non-labored respirations and equal bilateral excursions. CARDIOVASCULAR: Regular rate with regular rhythm. Palpable 2+ radial pulses. ABDOMEN: Soft. Mildly distended. Mild diffuse tenderness. NG tube in place with dark greenish output MUSCULOSKELETAL: No clubbing or cyanosis. NEUROLOGIC: No focal or lateralizing signs. Cranial nerves II through XII grossly intact. PSYCH: Appropriate affect. Alert and oriented to person, place and time. SKIN: Well perfused. Good skin turgor. LABORATORY DATA: WBC 8.8 hemoglobin 14.0 creatinine 1.3 to liver enzymes and lipase normal UA negative for infection IMAGING: Computed tomography scan of the abdomen and pelvis shows a high-grade partial distal small bowel obstruction. Small free fluid. No free air. Stable right lower lobe post surgical changes. ASSESSMENT: 1. Bowel obstruction 2. Dehydration 3. History of DVT and PE anticoagulated with Xarelto 4. History of atrial fibrillation 5. History of carcinoid tumor of the lung status post partial resection about 5 years ago 6. Prior history of hernia surgery PLAN: -Patient's NG tube came out accidentally. We'll leave NG tube out. Patient now reporting having bowel movements. -Start clear liquid diet -Continue with IV fluids -Continue Zofran as needed for nausea -GI prophylaxis Protonix -Restart Xarelto tonight if patient tolerating diet Physician Carry Out Clerk And Shelf Stocker note has been reviewed by physician. Signing provider agrees with the documented findings, assessment, and plan of care. 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; skin ca History of Any Multi-Drug Resistant Organisms: None Reported Past Surgical History: Hernia Repair Additional Past Surgical History / Comment(s): cataracts, cyst removed rt chest area and left neck area, pre skin cancer removed, 02-16-14 RT LOWER LOBECTOMY D/T CA Past Anesthesia/Blood Transfusion Reactions: No Reported Reaction Additional Past Anesthesia/Blood Transfusion Reaction / Comment(s): motion sickness years ago Past Psychological History: No Psychological Hx Reported Smoking Status: Never smoker Past Alcohol Use History: None Reported Past Drug Use History: None Reported - Past Family History Mother Family Medical History: Cancer Medications and Allergies Home Medications Medication Instructions Recorded Confirmed Type Albuterol Sulfate [Proair 2 puff INHALATION RT-Q4H PRN 09/17/18 12/30/19 History Respiclick] Aspirin EC [Ecotrin Low Dose] 81 mg PO AC-SUPPER 09/17/18 12/30/19 History Multivitamins, Thera [Multivitamin 1 tab PO DAILY 09/17/18 12/30/19 History (formulary)] Tamsulosin [Flomax] 0.4 mg PO PC-SUPPER 09/17/18 12/30/19 History Rivaroxaban [Xarelto] 20 mg PO AC-SUPPER 12/30/19 12/30/19 History Allergies Allergy/AdvReac Type Severity Reaction Status Date / Time No Known Allergies Allergy Verified 12/30/19 18:23 Surgical - Exam Vital Signs Temp Pulse Resp BP Pulse Ox 98.9 F 59 L 16 137/76 99 12/30/19 17:21 12/30/19 17:21 12/30/19 17:21 12/30/19 17:21 12/30/19 17:21 Results - Labs 12/30/19 18:42 12/30/19 18:42 Abnormal Lab Results - Last 24 Hours (Table) 12/30/19 12/30/19 12/30/19 Range/Units 18:42 18:42 20:37 Lymphocytes # 0.7 L (1.0-4.8) k/uL Chloride 97 L (98-107) mmol/L BUN 26 H (9-20) mg/dL Creatinine 1.32 H (0.66-1.25) mg/dL Glucose 142 H (74-99) mg/dL Calcium 10.7 H (8.4-10.2) mg/dL Ur Specific [place] >1.050 H (1.001-1.035) Urine Protein Trace H (Negative) Urine Ketones 2+ H (Negative) Diabetes panel 12/30/19 Range/Units 18:42 Sodium 137 (137-145) mmol/L Potassium 4.5 (3.5-5.1) mmol/L Chloride 97 L (98-107) mmol/L Carbon Dioxide 29 (22-30) mmol/L BUN 26 H (9-20) mg/dL Creatinine 1.32 H (0.66-1.25) mg/dL Glucose 142 H (74-99) mg/dL Calcium 10.7 H (8.4-10.2) mg/dL AST 25 (17-59) U/L ALT 17 (4-49) U/L Alkaline Phosphatase 69 (38-126) U/L Total Protein 7.3 (6.3-8.2) g/dL Albumin 4.4 (3.5-5.0) g/dL Calcium panel 12/30/19 Range/Units 18:42 Calcium 10.7 H (8.4-10.2) mg/dL Albumin 4.4 (3.5-5.0) g/dL Pituitary panel 12/30/19 Range/Units 18:42 Sodium 137 (137-145) mmol/L Potassium 4.5 (3.5-5.1) mmol/L Chloride 97 L (98-107) mmol/L Carbon Dioxide 29 (22-30) mmol/L BUN 26 H (9-20) mg/dL Creatinine 1.32 H (0.66-1.25) mg/dL Glucose 142 H (74-99) mg/dL Calcium 10.7 H (8.4-10.2) mg/dL Adrenal panel 12/30/19 Range/Units 18:42 Sodium 137 (137-145) mmol/L Potassium 4.5 (3.5-5.1) mmol/L Chloride 97 L (98-107) mmol/L Carbon Dioxide 29 (22-30) mmol/L BUN 26 H (9-20) mg/dL Creatinine 1.32 H (0.66-1.25) mg/dL Glucose 142 H (74-99) mg/dL Calcium 10.7 H (8.4-10.2) mg/dL Total Bilirubin 1.0 (0.2-1.3) mg/dL AST 25 (17-59) U/L ALT 17 (4-49) U/L Alkaline Phosphatase 69 (38-126) U/L Total Protein 7.3 (6.3-8.2) g/dL Albumin 4.4 (3.5-5.0) g/dL <Remedios Asher N - Last Filed: 01/01/20 22:09> History of Present Illness Patient seen and evaluated as above. Please see additional documentation below. CHIEF COMPLAINT: Abdominal pain HISTORY OF PRESENT ILLNESS: The patient is an 79 year old male who presents with abdominal pain beyond the last 1-2 days. He has pre-existing history of hypercoagulable state including pulmonary embolism, DVTs and is on a blood thinner. He had a nasogastric tube that had fell out. He is already having bowel movements. No fevers or chills. He reports abdominal surgery includes inguinal hernia repair. No current nausea or vomiting. No blood in stools. He denies any passage of flatus. Abdominal pain has improved since admission. PAST MEDICAL HISTORY: See list and reviewed PAST SURGICAL HISTORY: See list and reviewed MEDICATIONS: See list and reviewed ALLERGIES: See list and reviewed SOCIAL HISTORY: See list and reviewed FAMILY HISTORY: See list and reviewed REVIEW OF ORGAN SYSTEMS: CONSTITUTIONAL: No fevers or chills. EYES: Denies any trouble with vision. No glasses. HEENT: No difficulties with hearing. No nosebleeds. No difficulty swallowing. RESPIRATORY: Denies pneumonia. History of lung resection and carcinoid tumor. CARDIOVASCULAR: History of atrial fibrillation. GASTROINTESTINAL: Denies fatty food intolerance. Denies change in bowel habits and gas bloat. GENITOURINARY: Denies any blood in urine. Has increased urinary frequency. NEUROLOGICAL: Denies any numbness or tingling along the distal extremities. No seizure disorders or headaches. MUSCULOSKELETAL: Has back pain, stiffness or joint arthritis. SKIN: No current skin cancer. No rash. PSYCHIATRIC: Denies current depression or suicidal thoughts. ENDOCRINE: Denies current thyroid disorders. Denies any blood sugar glucose intolerance. HEME/LYMPHATIC: History of pulmonary embolism including DVTs. Has hypochromic state. On blood thinner. ALLERGY/IMMUNOLOGY: No immunoglobulin therapy. No immune deficiencies. BREAST: Denies current breast lumps, pain or nipple discharge. PHYSICAL EXAM: VITALS: Reviewed CONSTITUTIONAL: Well developed and in no acute distress. EYES: Conjuctivae without sclera icterus. Pupils are equally round and reactive to light. Extraocular movements grossly intact. HEAD, EARS, NOSE, THROAT: Moist buccal mucosa. Head is atraumatic, normocephalic. Hears conversational speech. No nasal drainage. NECK: Supple. No JV distention. No thyroidomegaly. RESPIRATORY: Non-labored respirations and equal bilateral excursions. No gross wheezes. CARDIOVASCULAR: Palpable 2+ radial pulses. ABDOMEN: Soft. Non-tender. Nondistended. LYMPH: No neck lymphadenopathy. MUSCULOSKELETAL: Nail and fingers with good capillary refill. SKIN: Warm and well perfused with good skin turgor. NEUROLOGIC: Cranial nerves II through XII grossly intact. Sensation upper and extremities intact. No focal or lateralizing signs. PSYCH: Appropriate affect. Alert and oriented to person, place and time. Displays appropriate insight. CLINCAL LABS: Reviewed. WBC 8.1 normal limits. Abdomen 14.0. IMAGING: Independently reviewed with CT of the abdomen and pelvis independently reviewed demonstrating dilated small bowel loops. No free air. Mild scoliosis of the spine. RADIOLOGY: Report reviewed of the CT of the abdomen and pelvis demonstrates small bowel obstruction. ASSESSMENT: 1. Small bowel obstruction PLAN: 1. Clinically he is doing better and may start liquid diet. 2. IV fluid hydration. 3. Will reevaluate for discharge pending tolerating diet. Surgical - Exam Vital Signs Temp Pulse Resp BP Pulse Ox 98.9 F 59 L 16 137/76 99 12/30/19 17:21 12/30/19 17:21 12/30/19 17:21 12/30/19 17:21 12/30/19 17:21 Results - Labs 01/01/20 07:23 01/01/20 07:23 Abnormal Lab Results - Last 24 Hours (Table) 01/01/20 01/01/20 Range/Units 07:23 07:23 RBC 3.72 L (4.30-5.90) m/uL Hgb 12.4 L (13.0-17.5) gm/dL Hct 37.1 L (39.0-53.0) % Est GFR (CKD-EPI)NonAf 56.8 L (60.0-200.0) Total Protein 5.6 L (6.2-8.2) g/dL Albumin 3.70 L (3.80-4.90) g/dL Diabetes panel 01/01/20 Range/Units 07:23 Sodium 140 (135-145) mmol/L Potassium 4.5 (3.5-5.5) mmol/L Chloride 107 (96-109) mmol/L Carbon Dioxide 26.0 (21.6-31.8) mmol/L BUN 24.0 (9.0-27.0) mg/dL Creatinine 1.2 (0.6-1.5) mg/dL Glucose 89 (70-110) mg/dL Calcium 8.7 (8.7-10.3) mg/dL AST 22 (14-35) U/L ALT 13 (10-49) U/L Alkaline Phosphatase 54 (41-126) U/L Total Protein 5.6 L (6.2-8.2) g/dL Albumin 3.70 L (3.80-4.90) g/dL Calcium panel 01/01/20 Range/Units 07:23 Calcium 8.7 (8.7-10.3) mg/dL Albumin 3.70 L (3.80-4.90) g/dL Pituitary panel 01/01/20 Range/Units 07:23 Sodium 140 (135-145) mmol/L Potassium 4.5 (3.5-5.5) mmol/L Chloride 107 (96-109) mmol/L Carbon Dioxide 26.0 (21.6-31.8) mmol/L BUN 24.0 (9.0-27.0) mg/dL Creatinine 1.2 (0.6-1.5) mg/dL Glucose 89 (70-110) mg/dL Calcium 8.7 (8.7-10.3) mg/dL Adrenal panel 01/01/20 Range/Units 07:23 Sodium 140 (135-145) mmol/L Potassium 4.5 (3.5-5.5) mmol/L Chloride 107 (96-109) mmol/L Carbon Dioxide 26.0 (21.6-31.8) mmol/L BUN 24.0 (9.0-27.0) mg/dL Creatinine 1.2 (0.6-1.5) mg/dL Glucose 89 (70-110) mg/dL Calcium 8.7 (8.7-10.3) mg/dL Total Bilirubin 0.8 (0.3-1.2) mg/dL AST 22 (14-35) U/L ALT 13 (10-49) U/L Alkaline Phosphatase 54 (41-126) U/L Total Protein 5.6 L (6.2-8.2) g/dL Albumin 3.70 L (3.80-4.90) g/dL Assessment and Plan (1) Atrial fibrillation Status: Acute Code(s): I48.91 - UNSPECIFIED ATRIAL FIBRILLATION SNOMED Code(s): 36093273 (2) Carcinoid tumor Status: Acute Code(s): D3A.00 - BENIGN CARCINOID TUMOR OF UNSPECIFIED SITE SNOMED Code(s): 547716094 (3) DVT (deep venous thrombosis) Status: Acute Code(s): I82.409 - ACUTE EMBOLISM AND THOMBOS UNSP DEEP VN UNSP LOWER EXTREMITY SNOMED Code(s): 034684690 (4) Pulmonary embolism Status: Acute Code(s): I26.99 - OTHER PULMONARY EMBOLISM WITHOUT ACUTE COR PULMONALE SNOMED Code(s): 90089525 (5) Small bowel obstruction Status: Acute Code(s): K56.609 - UNSP INTESTNL OBST, UNSP TO PARTIAL VERSUS COMPLETE OBST SNOMED Code(s): 153400975
[2019-12-31] MEDS: PANTOPRAZOLE 40 MG/10 ML VIAL IVP SCH (13:20)
--- NOTE | 2019-12-31 15:37 | P.CONS ---
History of Present Illness - Reason for Consult Consult date: 12/31/19 - History of Present Illness HISTORY OF PRESENT ILLNESS This is an 79-year-old male patient of Dr. Hardwick with past medical history of pulmonary embolism in 2013 and repeat in 2019 on chronic Xarelto, benign prostatic hypertrophy, carcinoid tumor in the lower right lower lobe of the lung, skin cancer, brief episode of self-limiting atrial fibrillation 2013 following right lobectomy. Patient gives history of abdominal discomfort that started on Saturday. He initially was seen in the emergency center at that time and was diagnosed with constipation and discharged home. He was to drink magnesium citrate but about 3 hours later he ended up vomiting. He continued to have abdominal pain. No fever or chills. No diarrhea. He returned to the emergency center for further evaluation. He does have history of similar episode about infection perspective 20 years ago. Patient presented to [facility] emergency center for evaluation. CBC was normal. Sodium 137, potassium 4.5, chloride 97, CO2 29, BUN 26, creatinine 1.32, blood sugar 142, calcium 10.7, lipase 32. Urinalysis clear, 2+ ketones. CAT scan of the abdomen and pelvis with contrast revealed high-grade partial distal small bowel obstruction, small free fluid. Stable right lower lobe post surgical changes. Chest x-ray shows no active cardiac pulmonary disease. Patient was afebrile, heart rate 59, blood pressure 137/76, pulse ox 99% on room air. Patient admitted to the [facility] floor under general surgery. Xarelto is on hold. NG tube is in place. REVIEW OF SYSTEMS Constitutional: No fever, no chills, no night sweats. No weight change. No weakness, fatigue or lethargy. No daytime sleepiness. EENT: No headache. No blurred vision or double vision, no loss of vision. No loss of Hearing, no ringing in the ears, no dizziness. No nasal drainage or congestion. No epistaxis. No sore throat. Lungs: No shortness of breath, cough, no sputum production. No wheezing. Cardiovascular: No chest pain, no lower extremity edema. No palpitations. No paroxysmal nocturnal dyspnea. No orthopnea. No lightheadedness or dizziness. No syncopal episodes. Abdominal: Reports abdominal pain. Reports nausea, Reportsvomiting. No diarrhea. Reports constipation. No bloody or tarry stools.Reports loss of appetite. Genitourinary: No dysuria, increased frequency, urgency. No urinary retention. Musculoskeletal: No myalgias. No muscle weakness, no gait dysfunction, no frequent falls. No back pain. No neck pain. Integumentary: No wounds, no lesions. No rash or pruritus. Neurologic: No aphasia. No facial droop. No change in mentation. No head injury. No headache. No paralysis. No paresthesia. Psychiatric: No depression. No anxiety. Endocrine: No abnormal blood sugars. SOCIAL HISTORY Patient is a lifelong nonsmoker, no alcohol use, no marijuana or street drug use. Patient is . FAMILY HISTORY Mother at age 90 from cancer. Father at age 92 from myocardial infarction. Patient is on every brothers. Patient's 1 sister with no major medical problems. Patient has 3 children with no major medical problems. PHYSICAL EXAMINATION Gen: This is an 79-year-old male. He is resting in bed appears to be comfortable and in no acute distress. HEENT: Head is atraumatic, normocephalic. Pupils equal, round. Sclerae is anicteric. NG tube in place. NECK: Supple. No JVD. No lymphadenopathy. No thyromegaly. LUNGS: Clear to auscultation. No wheezes or rhonchi. No intercostal retractions. HEART: Regular rate and rhythm. No murmur. ABDOMEN: Soft. Bowel sounds are present. No masses. Mild generalized tenderness. EXTREMITIES: No pedal edema. No calf tenderness. Dorsalis pedis +2 bilaterally. NEUROLOGICAL: Patient is awake, alert and oriented x3. Cranial nerves 2 through 12 are grossly intact. ASSESSMENT AND PLAN 1. Partial distal small bowel obstruction. NG tube is in place. Continue IV fluids, Zofran as needed for nausea, Dilaudid for pain. 2. History of pulmonary embolism. Resume Xarelto once cleared by general surgery. 3. Benign prostatic hypertrophy. Monitor for urinary retention. 4. History of carcinoid tumor right lower lobe status post resection, stable. 5. Brief episode of atrial fibrillation 2013 following right lobectomy, stable. 6. DVT prophylaxis. Xarelto. 7. GI prophylaxis. Protonix. Discharge plan: home. Impression and plan of care have been directed as dictated by the signing physician. Anne-Marie Jacobs nurse practitioner acting as scribe for signing physician. 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; skin ca History of Any Multi-Drug Resistant Organisms: None Reported Past Surgical History: Hernia Repair Additional Past Surgical History / Comment(s): cataracts, cyst removed rt chest area and left neck area, pre skin cancer removed, 02-16-14 RT LOWER LOBECTOMY D/T CA Past Anesthesia/Blood Transfusion Reactions: No Reported Reaction Additional Past Anesthesia/Blood Transfusion Reaction / Comm: motion sickness years ago Past Psychological History: No Psychological Hx Reported Smoking Status: Never smoker Past Alcohol Use History: None Reported Past Drug Use History: None Reported - Past Family History Mother Family Medical History: Cancer Medications and Allergies Home Medications Medication Instructions Recorded Confirmed Type Albuterol Sulfate [Proair 2 puff INHALATION RT-Q4H PRN 09/17/18 12/30/19 History Respiclick] Aspirin EC [Ecotrin Low Dose] 81 mg PO AC-SUPPER 09/17/18 12/30/19 History Multivitamins, Thera [Multivitamin 1 tab PO DAILY 09/17/18 12/30/19 History (formulary)] Tamsulosin [Flomax] 0.4 mg PO PC-SUPPER 09/17/18 12/30/19 History Rivaroxaban [Xarelto] 20 mg PO AC-SUPPER 12/30/19 12/30/19 History Allergies Allergy/AdvReac Type Severity Reaction Status Date / Time No Known Allergies Allergy Verified 12/30/19 18:23 Physical Exam Vitals: Vital Signs Temp Pulse Pulse Resp BP BP Pulse Ox 12/31/19 07:00 98.3 F 58 L 20 146/69 97 12/31/19 01:00 98.5 F 68 20 134/77 97 12/30/19 23:44 81 20 12/30/19 23:00 98.3 F 81 20 144/78 97 12/30/19 22:51 98.2 F 103 H 18 127/86 96 12/30/19 22:23 72 16 140/90 98 12/30/19 17:21 98.9 F 59 L 16 137/76 99 Intake and Output 10/12/31/19 12/31/19 22:59 06:59 14:59 Intake Total 800 Output Total 150 Balance 650 Intake: Intake, IV Titration 800 Amount Sodium Chloride 0.9% 1, 800 000 ml @ 100 mls/hr IV . Q10H [facility] Rx#:[id number] Output: Urine 150 Other: Voiding Method Toilet Urinal # Voids 1 Weight 64.41 kg Results CBC & Chem 7: 12/30/19 18:42 12/30/19 18:42 Labs: Abnormal Lab Results - Last 24 Hours (Table) 12/30/19 12/30/19 12/30/19 Range/Units 18:42 18:42 20:37 Lymphocytes # 0.7 L (1.0-4.8) k/uL Chloride 97 L (98-107) mmol/L BUN 26 H (9-20) mg/dL Creatinine 1.32 H (0.66-1.25) mg/dL Glucose 142 H (74-99) mg/dL Calcium 10.7 H (8.4-10.2) mg/dL Ur Specific [place] >1.050 H (1.001-1.035) Urine Protein Trace H (Negative) Urine Ketones 2+ H (Negative)
[2019-12-31] MEDS ORDERED: RIVAROXABAN 20 MG TAB PO SCH (17:30)
[2019-12-31] MEDS ORDERED: TAMSULOSIN 0.4 MG CAP.ER.24H PO SCH (18:30)
[2020-01-01 06:58] VITALS: PULSE 57
[2020-01-01 07:51] LABS: Basophils # (A) 0.1 k/uL (0-0.2); Basophils % (A) 1 %; Eosinophils # (A) 0.5 k/uL (0-0.7); Eosinophils % (A) 7 %; HCT 37.1 % (39.0-53.0); HGB 12.4 gm/dL (13.0-17.5); Lymphocytes # (A) 1.6 k/uL (1.0-4.8); Lymphocytes % (A) 24 %; MCH 33.2 pg (25.0-35.0); MCHC 33.3 g/dL (31.0-37.0); MCV 99.6 fL (80.0-100.0); Mean Platelet Volume 7.1; Monocytes # (A) 0.3 k/uL (0-1.0); Monocytes % (A) 5 %; Neutrophils # (A) 4.2 k/uL (1.3-7.7); Neutrophils % (A) 62 %; Platelet Count 182 k/uL (150-450); RBC 3.72 m/uL (4.30-5.90); RDW 12.8 % (11.5-15.5); WBC 6.8 k/uL (3.8-10.6)
[2020-01-01] MEDS: PANTOPRAZOLE 40 MG/10 ML VIAL IVP SCH (08:13)
[2020-01-01] MEDS: SODIUM CHLORIDE 0.9% 1,000 ML IV SCH (10:25)
[2020-01-01 11:17] LABS: African American GFR (CKD) 65.8 (60.0-200.0); Albumin 3.7 g/dL (3.80-4.90); Albumin/Globulin Ratio 1.95 (1.60-3.17); Calcium 8.7 mg/dL (8.7-10.3); Globulin 1.9 g/dL (1.6-3.3); Non-African American GFR(CKD) 56.8 (60.0-200.0); Potassium 4.5 mmol/L (3.5-5.5); Total Bilirubin 0.8 mg/dL (0.3-1.2); Total Protein 5.6 g/dL (6.2-8.2)
--- NOTE | 2020-01-01 14:33 | P.PN ---
Subjective Progress Note Date: 01/01/20 HISTORY OF PRESENT ILLNESS This is an 79-year-old male patient of Dr. 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 Patient gives history of abdominal discomfort that started on Saturday. He initially was seen in the emergency center at that time and was diagnosed with constipation and discharged home. He was to drink magnesium citrate but about 3 hours later he ended up vomiting. He continued to have abdominal pain. No fever or chills. No diarrhea. He returned to the emergency center for further evaluation. He does have history of similar episode about infection perspective 20 years ago. Patient presented to [facility] emergency center for evaluation. CBC was normal. Sodium 137, potassium 4.5, chloride 97, CO2 29, BUN 26, creatinine 1.32, blood sugar 142, calcium 10.7, lipase 32. Urinalysis clear, 2+ ketones. CAT scan of the abdomen and pelvis with contrast revealed high-grade partial distal small bowel obstruction, small free fluid. Stable right lower lobe post surgical changes. Chest x-ray shows no active cardiac pulmonary disease. Patient was afebrile, heart rate 59, blood pressure 137/76, pulse ox 99% on room air. Patient admitted to the [facility] floor under general surgery. Xarelto is on hold. NG tube is in place. 12/31: Patient had NG tube removed yesterday. He is currently on clear liquids and tolerating well with plan to start regular diet for lunch today. Patient has been resumed on Xarelto. He states his abdominal pain has resolved. He is passing gas. He is hoping for discharge later today after seen by general surgery. Patient has been afebrile, heart rate 57, blood pressure 117/54, pulse ox 97% on room air. Repeat blood work reveals WBC 6.8, hemoglobin 12.4, platelet count 182. Electrolytes renal function normal. Liver function tests normal. Patient is cleared from medicine for discharge home with plan for follow-up in the office next week. REVIEW OF SYSTEMS Constitutional: No fever, no chills, no night sweats. No weight change. No weakness, fatigue or lethargy. No daytime sleepiness. EENT: No headache. No blurred vision or double vision, no loss of vision. No loss of Hearing, no ringing in the ears, no dizziness. No nasal drainage or congestion. No epistaxis. No sore throat. Lungs: No shortness of breath, cough, no sputum production. No wheezing. Cardiovascular: No chest pain, no lower extremity edema. No palpitations. No paroxysmal nocturnal dyspnea. No orthopnea. No lightheadedness or dizziness. No syncopal episodes. Abdominal: Denies abdominal pain. Denies nausea, denies vomiting. No diarrhea. Denies constipation. No bloody or tarry stools.Reports loss of appetite. Genitourinary: No dysuria, increased frequency, urgency. No urinary retention. Musculoskeletal: No myalgias. No muscle weakness, no gait dysfunction, no frequent falls. No back pain. No neck pain. Integumentary: No wounds, no lesions. No rash or pruritus. Neurologic: No aphasia. No facial droop. No change in mentation. No head injury. No headache. No paralysis. No paresthesia. Psychiatric: No depression. No anxiety. Endocrine: No abnormal blood sugars. PHYSICAL EXAMINATION Gen: This is an 79-year-old male. He is resting in bed appears to be comfortable and in no acute distress. HEENT: Head is atraumatic, normocephalic. Pupils equal, round. Sclerae is ani cteric. NECK: Supple. No JVD. No lymphadenopathy. No thyromegaly. LUNGS: Clear to auscultation. No wheezes or rhonchi. No intercostal retractions. HEART: Regular rate and rhythm. No murmur. ABDOMEN: Soft. Bowel sounds are present. No masses. No abdominal tenderness. EXTREMITIES: No pedal edema. No calf tenderness. Dorsalis pedis +2 bilaterally. NEUROLOGICAL: Patient is awake, alert and oriented x3. Cranial nerves 2 through 12 are grossly intact. ASSESSMENT AND PLAN 1. Partial distal small bowel obstruction, resolved. NG tube removed. Continue IV fluids, Zofran as needed for nausea, Dilaudid for pain. 2. History of pulmonary embolism. Xarelto has been resumed. 3. Benign prostatic hypertrophy. Monitor for urinary retention. 4. History of carcinoid tumor right lower lobe status post resection, stable. 5. Brief episode of atrial fibrillation 2014 following right lobectomy, stable. 6. DVT prophylaxis. Xarelto. 7. GI prophylaxis. Protonix. Discharge plan: home. Impression and plan of care have been directed as dictated by the signing physician. Anne-Marie Jacobs nurse practitioner acting as scribe for signing physician. Objective - Vital Signs Vital signs: Vital Signs Temp 97.5 F L 01/01/20 06:57 Pulse 57 L 01/01/20 06:57 Resp 16 01/01/20 06:57 BP 117/54 01/01/20 06:57 Pulse Ox 97 01/01/20 06:57 Intake & Output 12/31/19 01/01/20 01/01/20 18:59 06:59 18:59 Intake Total 1700 Balance 1700 Intake: Intake, IV Titration 1600 Amount Sodium Chloride 0.9% 1, 1600 000 ml @ 100 mls/hr IV . Q10H [facility] Rx#:[id number] Oral 100 Other: Voiding Method Toilet Urinal # Voids 3 2 # Bowel Movements 1 - Labs CBC & Chem 7: 01/01/20 07:23 01/01/20 07:23 Labs: Abnormal Lab Results - Last 24 Hours (Table) 01/01/20 Range/Units 07:23 RBC 3.72 L (4.30-5.90) m/uL Hgb 12.4 L (13.0-17.5) gm/dL Hct 37.1 L (39.0-53.0) %
--- NOTE | 2020-01-01 14:40 | P.DS ---
<Mouna Potter - Last Filed: 01/01/20 14:36> Providers Expected date of discharge: 01/01/20 Hospital Course: Discharge diagnosis 1. Small bowel obstruction 2. Dehydration 3. History of DVT and PE anticoagulated with Xarelto 4. History of atrial fibrillation 5. History of carcinoid tumor of the lung status post partial resection about 5 years ago 6. Prior history of hernia surgery Hospital course This is a 79-year-old male with a known history of atrial fibrillation, DVT and PE anticoagulated on Xarelto, carcinoid tumor of the lung status post lung resection 5 years ago, hernia surgeryand COPD history. Patient presents to the emergency room with complaints of abdominal discomfort. He reports that symptoms initially started on Saturday. He was having abdominal discomfort and some constipation. It had been 2 days since his last bowel movement. 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 He reports that he was given an enema And did have small results. His abdominal discomfort has shown improvement and he was discharged home from the ER and given magnesium citrate to take at home. Patient then reports having no bowel movement with the magnesium citrate and then he started vomiting. His stomach became bloated and was having abdominal discomfort. He came back into the emergency room for further evaluation and treatment. Computed tomography scan of the abdomen and pelvis shows a small bowel obstruction. Small free fluid. No free air. Stable right lower lobe post surgical changes. Patient did have NG tube placed. NG tube did fall out on its own. However, patient was having bowel movements. NG tube was left out. Patient continued to have bowel movements and has started passing gas. Abdominal pain has resolved. He is tolerated advancement of diet. Was able to tolerate see him much prior to discharge. Patient is afebrile. De nies any nausea or vomiting. He has been up and ambulating. He is stable for discharge home. Physician Breakfast Attendant note has been reviewed by physician. Signing provider agrees with the documented findings, assessment, and plan of care. Patient Condition at Discharge: Stable Plan - Discharge Summary Discharge Rx Participant: No New Discharge Prescriptions: Continue Multivitamins, Thera [Multivitamin (formulary)] 1 tab PO DAILY Aspirin EC [Ecotrin Low Dose] 81 mg PO AC-SUPPER Tamsulosin [Flomax] 0.4 mg PO PC-SUPPER Albuterol Sulfate [Proair Respiclick] 2 puff INHALATION RT-Q4H PRN PRN Reason: Shortness Of Breath Rivaroxaban [Xarelto] 20 mg PO AC-SUPPER Discharge Medication List Albuterol Sulfate [Proair Respiclick] 2 puff INHALATION RT-Q4H PRN 09/17/18 [History] Aspirin EC [Ecotrin Low Dose] 81 mg PO AC-SUPPER 09/17/18 [History] Multivitamins, Thera [Multivitamin (formulary)] 1 tab PO DAILY 09/17/18 [History] Tamsulosin [Flomax] 0.4 mg PO PC-SUPPER 09/17/18 [History] Rivaroxaban [Xarelto] 20 mg PO AC-SUPPER 12/30/19 [History] Follow up Appointment(s)/Referral(s): Arthur Monique MD [Primary Care Provider] - 1-2 days (Saturday next week. Office closed at time of discharge. Please call to amke appointment) Remedios Asher MD [STAFF PHYSICIAN] - 01/12/20 3:30 pm Patient Instructions/Handouts: Bowel Obstruction (DC) Activity/Diet/Wound Care/Special Instructions: Diet Regular Activity as tolerated Discharge Disposition: HOME SELF-CARE <Remedios Asher - Last Filed: 01/01/20 22:14> Providers Date of admission: 12/30/19 21:36 Attending physician: Remedios Asher Consults: 12/31/19 08:48 Consult Physician Routine Consulting Provider: Arthur Monique Consult Reason/Comments: medical management Do you want consulting provider notified?: Yes Primary care physician: Arthur Monique - Discharge Diagnosis(es) (1) Atrial fibrillation Status: Acute (2) Carcinoid tumor Status: Acute (3) DVT (deep venous thrombosis) Status: Acute (4) Pulmonary embolism Status: Acute (5) Small bowel obstruction Status: Acute Hospital Course: Patient seen and evaluated as above. Please see additional documentation below. HISTORY OF PRESENT ILLNESS: The patient is an 79 year old male admitted for small bowel obstruction. Since admission, he had responded to nasogastric tube decompression. He is passing moderate flatus. He is having moderate bowel movements. Abdominal pain is resolved. He is tolerating a liquid diet. REVIEW OF ORGAN SYSTEMS: No fevers or chills. No nausea or vomiting. No chest pain. PHYSICAL EXAM: VITALS: Reviewed CONSTITUTIONAL: Well developed and in no acute distress. EYES: Conjuctivae without sclera icterus. Extraocular movements grossly intact. HEAD, EARS, NOSE, THROAT: Moist buccal mucosa. Head is atraumatic, normocephalic. Hears conversational speech. No nasal drainage. NECK: Supple. No JV distention. No thyroidomegaly. RESPIRATORY: Non-labored respirations and equal bilateral excursions. No gross wheezes. CARDIOVASCULAR: Palpable 2+ radial pulses. ABDOMEN: Soft. Non-tender. Nondistended. MUSCULOSKELETAL: Nail and fingers with good capillary refill. SKIN: Warm and well perfused with good skin turgor. NEUROLOGIC: Cranial nerves II through XII grossly intact. Sensation upper and extremities intact. No focal or lateralizing signs. PSYCH: Appropriate affect. Alert and oriented to person, place and time. Displays appropriate insight. CLINCAL LABS: Reviewed. WBC 8.8 to 6.8 ASSESSMENT: 1. Small bowel obstruction PLAN: 1. He is tolerating lliquid diet. May advance diet to soft. 2. May be discharged once tolerating soft diet. 3. Resume home medications.
[2020-01-01 15:22] VITALS: BP 120/73; RESP 15; TEMP 97.9
== END 2020-01-01 16:08 | disposition home or self-care (01) | DRG 390 ==
LOC: EC 17:20 → 4SSUR 21:36
PROVIDERS: ADMIT Surgery Plastic and Reconstructive Surgery; ATTEND Surgery Plastic and Reconstructive Surgery
PROC: 0D9670Z Drainage of Stomach with Drainage Device, Via Natural or Artificial Opening (ICD-10-PCS; principal; 2019-12-30)
DX: K56.600 Partial intestinal obstruction, unspecified as to cause (principal); I48.91 Unspecified atrial fibrillation; J44.9 Chronic obstructive pulmonary disease, unspecified; E86.0 Dehydration; N40.0 Benign prostatic hyperplasia without lower urinary tract symptoms; Z79.01 Long term (current) use of anticoagulants; Z79.82 Long term (current) use of aspirin; Z79.899 Other long term (current) drug therapy; Z86.711 Personal history of pulmonary embolism; Z86.718 Personal history of other venous thrombosis and embolism; Z85.828 Personal history of other malignant neoplasm of skin; Z90.2 Acquired absence of lung [part of]; Z85.110 Personal history of malignant carcinoid tumor of bronchus and lung; Z98.890 Other specified postprocedural states; Z98.42 Cataract extraction status, left eye; Z98.41 Cataract extraction status, right eye; Z82.49 Family history of ischemic heart disease and other diseases of the circulatory system; Z80.9 Family history of malignant neoplasm, unspecified
CPT/HCPCS: 36415; 43753; 74177; 80053; 81003; 82150; 83605; 83690; 85025; 96374; 99285

== ENCOUNTER → 2020-04-21 | Outpatient (CLI) | payer MEDICARE ==
--- NOTE | 2020-04-21 09:41 | US ---
EXAMINATION TYPE: US venous doppler duplex LE LT DATE OF EXAM: 04/21/2020 9:11 AM COMPARISON: US 04/20/2019 CLINICAL HISTORY: I82.5Z9 Embolism and Thrombosis. History of left leg DVT SIDE PERFORMED: Left TECHNIQUE: The lower extremity deep venous system is examined utilizing real time linear array sonog stephan with graded compression, doppler sonography and color-flow sonography. VESSELS IMAGED: Common Femoral Vein Deep Femoral Vein Greater Saphenous Vein * Femoral Vein Popliteal Vein Small Saphenous Vein * Proximal Calf Veins (* superficial vessels) Left Leg: Positive for non-occluding, chronic appearing DVT left popliteal vein. IMPRESSION: 1. Left lower extremity deep venous thrombosis, popliteal vein. This may be chronic with incomplete o cclusion.
--- NOTE | 2020-04-21 12:32 | CT ---
EXAMINATION TYPE: CT chest w con DATE OF EXAM: 04/21/2020 COMPARISON: April 20, 2019 HISTORY: Carcinoid Tumor of Lung CT DLP: 162.1 mGycm Automated exposure control for dose reduction was used. CONTRAST: CT scan of the chest is performed with IV Contrast, patient injected with 50 mL of Isovue 300. FINDINGS: LUNGS: Postoperative changes right lung. Persistent right lower lobe pleural thickening posteriorly a nd medially. Previously noted adjacent nodule is again visualized and measures 1.6 x 0.9 cm versus 1. 5 x 2.5 cm. No additional nodules identified. Superimposed mild subpleural fibrosis and hyperinflatio n compatible with COPD. MEDIASTINUM: There are no greater than 1 cm hilar or mediastinal lymph nodes. No pericardial effusi on is seen. Thoracic aorta is of normal caliber. The heart is not enlarged. UPPER ABDOMEN: No significant abnormality appreciated. OTHER: No additional significant abnormality is seen. IMPRESSION: 1. Persistent right lower lobe pleural thickening with adjacent pulmonary nodule essentially unchange d relative to the prior study.
== END | disposition home or self-care (01) ==
LOC: RADUSWWP 08:52
PROVIDERS: ATTEND Internal Medicine Hematology & Oncology
DX: I82.402 Acute embolism and thrombosis of unspecified deep veins of left lower extremity (principal); D3A.090 Benign carcinoid tumor of the bronchus and lung; R91.1 Solitary pulmonary nodule; R91.8 Other nonspecific abnormal finding of lung field
CPT/HCPCS: 82565; 84520; 93971; 71260; 36415; Q9967

== ENCOUNTER → 2021-04-19 | Outpatient (CLI) | payer MEDICARE ==
--- NOTE | 2021-04-19 12:06 | CT ---
EXAMINATION TYPE: CT chest w con DATE OF EXAM: 04/19/2021 COMPARISON: 04/21/2020, 04/20/2019 HISTORY: 81-year-old male R91.1, Lung nodule TECHNIQUE: Contiguous axial scanning of the chest after the administration of 60 mL of Isovue 300. C oronal/sagittal reconstructions performed. CT DLP: 159.4mGycm. Automatic exposure control utilized for a dose reduction. FINDINGS: Heart normal size without pericardial effusion. Mild LAD coronary calcifications are present. Ectatic aortic root at 3.6 cm. Mildly aneurysmal ascending aorta at 4.0 cm versus 3.9 cm, previously. Mild atherosclerotic arch calcifications within the discharge was a branching anatomy. Mildly enlarged caliber to the main right and left pulmonary arteries measuring up to 2.7 cm each sug gesting underlying pulmonary hypertension. No thoracic lymphadenopathy by CT size criteria. Chronic pleural parenchymal scarring and volume loss of the right apex and scattered subpleural inter stitial changes down the right lung. More focal pleural parenchymal scarring posterior right base with a adjacent 2.0 cm partially calcifi ed nodule posteromedial right lower lobe A 4 mm pulmonary nodule posterior right base just adjacent to appears more pronounced/new. This could represent some progressive adjacent scarring. Recess at a 6 month follow-up. Post surgical change of previous partial right lower lobectomy. Visualized upper abdomen shows unchanged low density thickening of the left adrenal gland suggesting adrenal hyperplasia. Stable hypodense lesion inferior right liver lobe measuring 1 cm suggesting a cyst. Bones: Mild dextroconvex curvature of the thoracic spine. Accentuated mid thoracic kyphosis with mild degenerative disc disease. Right fifth and sixth rib synostosis laterally. IMPRESSION: 1. Scattered chronic fibrosis right side of the lung and volume loss in the right hemithorax from pre vious partial right lower lobectomy. 2. Focal right basilar pleural parenchymal scarring with adjacent partially calcified 2.0 cm nodule r emains unchanged. 3. However, a 4 mm pulmonary nodule posterior right base just adjacent appears more pronounced/new. T his could represent some progressive scarring. Six-month follow-up CT to reassess. 4. Mild aneurysm ascending aorta 4.0 cm versus 3.9 cm, previously. 5. Underlying pulmonary arterial hypertension is suggested.
== END | disposition home or self-care (01) ==
LOC: RADCTMAIN 09:51
PROVIDERS: ATTEND Internal Medicine Hematology & Oncology
DX: J84.10 Pulmonary fibrosis, unspecified (principal); R91.8 Other nonspecific abnormal finding of lung field; I71.2 Thoracic aortic aneurysm, without rupture
CPT/HCPCS: 82565; 84520; 71260; 36415; Q9967

== ENCOUNTER 2021-05-28 11:10 | Inpatient (IN) | payer MEDICARE ==
[2021-05-28] MEDS ORDERED: SODIUM CHLORIDE 0.9% 500 ML 500 ML IV STA (11:14)
--- NOTE | 2021-05-28 11:20 | ED ---
General Adult HPI - General Stated complaint: Neuro Symptoms Time Seen by Provider: 05/28/21 11:13 Source: patient, EMS, RN notes reviewed, old records reviewed Mode of arrival: EMS Limitations: no limitations - History of Present Illness Initial comments: 81-year-old male presenting with slurred speech and difficulty forming words. This began about 20 minutes prior to arrival and has since significantly improved. He had recent admission for TIA with the same symptoms. He is on Xarelto and aspirin. He states that he does not have a headache. No chest pain. No limb weakness or numbness. His speech is almost returned to completely normal. He has a very mild expressive aphasia at the time of my evaluation. - Related Data Home Medications Medication Instructions Recorded Confirmed Albuterol Sulfate [Proair 2 puff INHALATION RT-Q4H PRN 09/17/18 05/25/21 Respiclick] Multivitamins, Thera [Multivitamin 1 tab PO DAILY 09/17/18 05/25/21 (formulary)] Tamsulosin [Flomax] 0.4 mg PO PC-SUPPER 09/17/18 05/25/21 Rivaroxaban [Xarelto] 20 mg PO AC-SUPPER 12/30/19 05/25/21 Previous Rx's Medication Instructions Recorded Aspirin 81 mg PO DAILY #30 tab 05/27/21 Atorvastatin [Lipitor] 40 mg PO DAILY #30 tab 05/27/21 Allergies Allergy/AdvReac Type Severity Reaction Status Date / Time No Known Allergies Allergy Verified 05/25/21 11:21 Review of Systems ROS Statement: Those systems with pertinent positive or pertinent negative responses have been documented in the HPI. ROS Other: All systems not noted in ROS Statement are negative. 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; skin ca History of Any Multi-Drug Resistant Organisms: None Reported Past Surgical History: Hernia Repair Additional Past Surgical History / Comment(s): cataracts, cyst removed rt chest area and left neck area, pre skin cancer removed, 02-16-14 RT LOWER LOBECTOMY D/T CA Past Anesthesia/Blood Transfusion Reactions: No Reported Reaction Additional Past Anesthesia/Blood Transfusion Reaction / Comment(s): motion sickness years ago Past Psychological History: No Psychological Hx Reported Smoking Status: Never smoker Past Alcohol Use History: None Reported Past Drug Use History: None Reported - Past Family History Mother Family Medical History: Cancer General Exam Limitations: no limitations General appearance: alert, in no apparent distress Head exam: Present: atraumatic, normocephalic Eye exam: Present: normal appearance, PERRL ENT exam: Present: normal exam Neck exam: Present: normal inspection. Absent: tenderness, meningismus Respiratory exam: Present: normal lung sounds bilaterally. Absent: respiratory distress, wheezes Cardiovascular Exam: Present: regular rate, normal rhythm GI/Abdominal exam: Present: soft. Absent: distended, tenderness, guarding Extremities exam: Present: normal inspection, normal capillary refill. Absent: pedal edema Neurological exam: Present: alert, oriented X3, motor sensory deficit (NIH of 1, expressive aphasia) Psychiatric exam: Present: normal affect, normal mood Skin exam: Present: warm, dry, intact. Absent: cyanosis, diaphoretic Course Vital Signs 05/28/21 11:13 Pulse Rate 88 Respiratory 18 Rate Blood Pressure 142/88 O2 Sat by Pulse 98 Oximetry - Reevaluation(s) Reevaluation #1: 05/28/21 11:[address] Lorena estrada for neurology who is able to evaluate the patient emergency department. At this time we we will perform head CT without contrast. MRI will be ordered. Patient not a TPA candidate secondary to anticoagulation status. His NIH is 1. EKG Findings - EKG Comments: EKG Findings:: EKG sinus rhythm, rate of 85, RI interval 183, QRS duration 85, QTC 389 tremor artifact, no ST segment elevation. Medical Decision Making - Medical Decision Making 81-year-old male presenting with expressive aphasia and mild dysarthria. Symptoms improved but not completely resolved upon arrival. He is anticoagulated, not a candidate for TPA. Head CT negative for intracranial hemorrhage, no significant change compared to prior. He was evaluated by neurology Dr. Carrillo in the emergency department. Given the recurrent nature of his stroke symptoms he will be readmitted with both hematology on for hypercoagulable evaluation and cardiology as well as neurology for recurrent CVA. I did discuss case with Dr. Nicole who will admit. - Lab Data Result diagrams: 05/28/21 11:31 05/28/21 11:31 Lab Results 05/28/21 05/28/21 05/28/21 Range/Units 11:20 11:31 11:31 WBC 5.9 (3.8-10.6) k/uL RBC 3.95 L (4.30-5.90) m/uL Hgb 12.9 L (13.0-17.5) gm/dL Hct 39.0 (39.0-53.0) % MCV 98.8 (80.0-100.0) fL MCH 32.6 (25.0-35.0) pg MCHC 33.0 (31.0-37.0) g/dL RDW 12.1 (11.5-15.5) % Plt Count 205 (150-450) k/uL MPV 7.6 Neutrophils % 71 % Lymphocytes % 17 % Monocytes % 4 % Eosinophils % 5 % Basophils % 2 % Neutrophils # 4.2 (1.3-7.7) k/uL Lymphocytes # 1.0 (1.0-4.8) k/uL Monocytes # 0.3 (0-1.0) k/uL Eosinophils # 0.3 (0-0.7) k/uL Basophils # 0.1 (0-0.2) k/uL PT 10.9 (9.0-12.0) sec INR 1.0 (<1.2) APTT 18.5 L (22.0-30.0) sec Sodium (137-145) mmol/L Potassium (3.5-5.1) mmol/L Chloride (98-107) mmol/L Carbon Dioxide (22-30) mmol/L Anion Gap mmol/L BUN (9-20) mg/dL Creatinine (0.66-1.25) mg/dL Est GFR (CKD-EPI)AfAm (>60 ml/min/1.73 sqM) Est GFR (CKD-EPI)NonAf (>60 ml/min/1.73 sqM) Glucose (74-99) mg/dL POC Glucose (mg/dL) 244 H (75-99) mg/dL POC Glu Butcher Scullion ID Kelly Rogers Calcium (8.4-10.2) mg/dL Total Bilirubin (0.2-1.3) mg/dL AST (17-59) U/L ALT (4-49) U/L Alkaline Phosphatase (38-126) U/L Troponin I (0.000-0.034) ng/mL Total Protein (6.3-8.2) g/dL Albumin (3.5-5.0) g/dL 05/28/21 05/28/21 Range/Units 11:31 11:31 WBC (3.8-10.6) k/uL RBC (4.30-5.90) m/uL Hgb (13.0-17.5) gm/dL Hct (39.0-53.0) % MCV (80.0-100.0) fL MCH (25.0-35.0) pg MCHC (31.0-37.0) g/dL RDW (11.5-15.5) % Plt Count (150-450) k/uL MPV Neutrophils % % Lymphocytes % % Monocytes % % Eosinophils % % Basophils % % Neutrophils # (1.3-7.7) k/uL Lymphocytes # (1.0-4.8) k/uL Monocytes # (0-1.0) k/uL Eosinophils # (0-0.7) k/uL Basophils # (0-0.2) k/uL PT (9.0-12.0) sec INR (<1.2) APTT (22.0-30.0) sec Sodium 136 L (137-145) mmol/L Potassium 4.2 (3.5-5.1) mmol/L Chloride 105 (98-107) mmol/L Carbon Dioxide 24 (22-30) mmol/L Anion Gap 7 mmol/L BUN 25 H (9-20) mg/dL Creatinine 1.41 H (0.66-1.25) mg/dL Est GFR (CKD-EPI)AfAm 54 (>60 ml/min/1.73 sqM) Est GFR (CKD-EPI)NonAf 46 (>60 ml/min/1.73 sqM) Glucose 241 H (74-99) mg/dL POC Glucose (mg/dL) (75-99) mg/dL POC Glu Butcher Scullion ID Calcium 9.1 (8.4-10.2) mg/dL Total Bilirubin 0.9 (0.2-1.3) mg/dL AST 39 (17-59) U/L ALT 23 (4-49) U/L Alkaline Phosphatase 62 (38-126) U/L Troponin I 0.014 (0.000-0.034) ng/mL Total Protein 7.2 (6.3-8.2) g/dL Albumin 4.2 (3.5-5.0) g/dL Disposition Clinical Impression: Cerebrovascular accident (CVA) Disposition: ADMITTED IP TO THIS [facility] Condition: Stable Is patient prescribed a controlled substance at d/c from ED?: No Referrals: Arthur Monique MD [Primary Care Provider] - 1-2 days Decision to Admit Reason: Admit from EC Decision Date: 05/28/21 Decision Time: 12:28
[2021-05-28 11:22] LABS: Glucose,Whole Blood 244 mg/dL (75-99)
[2021-05-28 11:40] LABS: Basophils # (A) 0.1 k/uL (0-0.2); Basophils % (A) 2 %; Eosinophils # (A) 0.3 k/uL (0-0.7); Eosinophils % (A) 5 %; HGB 12.9 gm/dL (13.0-17.5); Lymphocytes % (A) 17 %; MCH 32.6 pg (25.0-35.0); MCV 98.8 fL (80.0-100.0); Mean Platelet Volume 7.6; Monocytes # (A) 0.3 k/uL (0-1.0); Monocytes % (A) 4 %; Neutrophils # (A) 4.2 k/uL (1.3-7.7); Neutrophils % (A) 71 %; Platelet Count 205 k/uL (150-450); RBC 3.95 m/uL (4.30-5.90); RDW 12.1 % (11.5-15.5); WBC 5.9 k/uL (3.8-10.6)
--- NOTE | 2021-05-28 11:44 | CT ---
EXAMINATION TYPE: CT brain wo con for TPA DATE OF EXAM: 05/28/2021 HISTORY: slurred speech. CT DLP: 1122.4 mGycm. Automated Exposure Control for Dose Reduction was Utilized. TECHNIQUE: CT scan of the head is performed without contrast. COMPARISON: CT brain 3 days ago. MRI brain 2 days ago.. FINDINGS: There is no acute intracranial hemorrhage or midline shift identified. Horizontal artifac t coronal image 33 for reference current study There is mild to moderate diffuse ventricular and sulc al prominence consistent with diffuse age-related cerebral atrophy. There is mild to moderate low-at tenuation scattered throughout the white matter consistent with chronic small vessel ischemic change. Scleral pelvis cage and bilateral globes redemonstrated. Paranasal sinuses remain clear.. IMPRESSION: No acute intracranial hemorrhage or midline shift. There is mild to moderate diffuse ce rebral atrophy and small vessel ischemic change with areas of evolving acute left-sided infarct on re cent MRI less well-seen on CT. No significant change from recent CT.
[2021-05-28 11:51] LABS: Albumin 4.2 g/dL (3.5-5.0); Calcium 9.1 mg/dL (8.4-10.2); Potassium 4.2 mmol/L (3.5-5.1); Total Bilirubin 0.9 mg/dL (0.2-1.3); Total Protein 7.2 g/dL (6.3-8.2)
[2021-05-28 12:04] LABS: Prothrombin Time 10.9 sec (9.0-12.0)
[2021-05-28 12:17] LABS: Partial Thromboplastin Time 18.5 sec (22.0-30.0)
[2021-05-28] MEDS: SODIUM CHLORIDE 0.9% 1,000 ML IV SCH ×2 (12:30→20:53)
--- NOTE | 2021-05-28 14:58 | P.HPIM ---
History of Present Illness H&P Date: 05/28/21 HISTORY OF PRESENT ILLNESS This is an 81-year-old male patient of Dr. 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 Patient was initiated on aspirin along with xarelto to prevent further strokes. Patient was supposed to follow with cardiology for possible bubble study and MONI as outpatient. Cardiology was updated about the plan. Apparently, patient went home and started having slurry speech and difficulty finding words when he was speaking to his sister over the phone. Patient was brought in by the family to get evaluated.. Patient denies any motor or sensory deficit. He denies any history of seizures, any gait instability or visual defect. Patient denies any previous history of strokes. He denies any history of irregular heartbeat. He is independent and functionally active. Vitals were reviewed afebrile pulse 64 respiratory rate 17 and blood pressure 153/83. Labs are reviewed hemoglobin is 12.9 and stable sodium 136 potassium 4.2 BUN 25 creatinine 1.4 glucose 241 LDL 57 homocystine normal B12 [address] on 05/25 suggestive age-related atrophic and chronic small vessel ischemic changes without acute intracranial process. Repeat CT on 05/28 suggested no acute intracranial hemorrhage mild to moderate diffuse cerebral atrophy noted with the areas of evolving acute left-sided infarct on recent MRI less well seen on the CT. No other new lesions noted CT angiogram on 05/25/2021 suggestive of no stenosis or focal aneurysm at the level of [place] no focal dark or stenosis in the common or internal carotid artery bilaterally. Cardiology consulted for possible MONI. Echocardiogram ordered with bubble study. Oncology consulted to rule out hypercoagulable does REVIEW OF SYSTEMS Constitutional: No fever, no chills, no night sweats. No weight change. No weakness, fatigue or lethargy. No daytime sleepiness. EENT: No headache. No blurred vision or double vision, no loss of vision. No loss of Hearing, no ringing in the ears, no dizziness. No nasal drainage or congestion. No epistaxis. No sore throat. Lungs: No shortness of breath, cough, no sputum production. No wheezing. Cardiovascular: No chest pain, no lower extremity edema. No palpitations. No paroxysmal nocturnal dyspnea. No orthopnea. No lightheadedness or dizziness. No syncopal episodes. Abdominal: no abdominal pain. no nausea, no vomiting. No diarrhea. Reports constipation. No bloody or tarry stools.Reports loss of appetite. Genitourinary: No dysuria, increased frequency, urgency. No urinary retention. Musculoskeletal: No myalgias. No muscle weakness, no gait dysfunction, no frequent falls. No back pain. No neck pain. Integumentary: No wounds, no lesions. No rash or pruritus. Neurologic: positive for aphasia. No facial droop. No change in mentation. No head injury. No headache. No paralysis. No paresthesia. Psychiatric: No depression. No anxiety. Endocrine: No abnormal blood sugars. SOCIAL HISTORY Patient quit smoking 40 years ago, smoked for 15 years , no alcohol use, no marijuana or street drug use. Patient is . FAMILY HISTORY Mother at age 90 from cancer, has h/o stroke . Father at age 92 from myocardial infarction/ broken heart syndrome . Patient i has no brothers. Patient's 1 sister with no major medical problems. Patient has 3 stepchildren with no major medical problems. PHYSICAL EXAMINATION Gen: This is an 79-year-old male. He is resting in bed appears to be comfortable and in no acute distress. HEENT: Head is atraumatic, normocephalic. Pupils equal, round. Sclerae is anicteric. NG tube in place. NECK: Supple. No JVD. No lymphadenopathy. No thyromegaly. LUNGS: Clear to auscultation. No wheezes or rhonchi. No intercostal retractions. HEART: Regular rate and rhythm. No murmur. ABDOMEN: Soft. Bowel sounds are present. No masses. Mild generalized tenderness. EXTREMITIES: No pedal edema. No calf tenderness. Dorsalis pedis +2 bilaterally. NEUROLOGICAL: Patient is awake, alert and oriented x3. expressive aphasia, no sensory or motor deficit finger to nose test normal. ASSESSMENT AND PLAN 1. Acute expressive aphasia secondary to acute CVA admitted on 05/25 with complete resolution with readmission on 05/28. CT angios CT head negative for hemorrhage or bleed or occlusion. MRI head positive for 2.2 cm left parietal lobe and 4 mm left posterior parietal lobe lesions in addition to old infarct involving the right parietal lobe with patient's history of atrial fibrillation , DVT and recurrent pulmonary embolism would order echocardiogram with bubble study to rule out any right to left shunt aspirin increased to 325 mg daily. Xarelto held to avoid stroke extension . Lipitor increased to 80 mg 40 mg by mouth daiLDL 57hold xarelto for today to prevent extension of stroke. telemetry ordered, patient in sinus hythm. Speech therapy consulted. permissive hypertension , treat if SBP > 180 oncology and cardiology consulted for possi ble MONI and hypercoagulable workup 2. History of pulmonary embolism and DVT 2013 and PE and DVT in 2019, hold Xarelto for 24 hour 3. Benign prostatic hypertrophy. continue tamsulosin 0.4 mg by mouth Monitor for urinary retention. 4. History of carcinoid tumor right lower lobe status post resection 2013, stable. 5. Brief episode of atrial fibrillation 2013 following right lobectomy, stable. No recurrent episode 6. DVT prophylaxis. Xarelto. 7. CODE STATUS full code Discharge plan: home. 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; skin ca History of Any Multi-Drug Resistant Organisms: None Reported Past Surgical History: Hernia Repair Additional Past Surgical History / Comment(s): cataracts, cyst removed rt chest area and left neck area, pre skin cancer removed, 02-16-14 RT LOWER LOBECTOMY D/T CA Past Anesthesia/Blood Transfusion Reactions: No Reported Reaction Additional Past Anesthesia/Blood Transfusion Reaction / Comment(s): motion sickness years ago Past Psychological History: No Psychological Hx Reported Smoking Status: Never smoker Past Alcohol Use History: None Reported Past Drug Use History: None Reported - Past Family History Mother Family Medical History: Cancer Medications and Allergies Home Medications Medication Instructions Recorded Confirmed Type Albuterol Sulfate [Proair 2 puff INHALATION RT-Q4H PRN 09/17/18 05/28/21 History Respiclick] Multivitamins, Thera [Multivitamin 1 tab PO DAILY 09/17/18 05/28/21 History (formulary)] Tamsulosin [Flomax] 0.4 mg PO PC-SUPPER 09/17/18 05/28/21 History Rivaroxaban [Xarelto] 20 mg PO AC-SUPPER 12/30/19 05/28/21 History Aspirin 81 mg PO DAILY #30 tab 05/27/21 05/28/21 Rx Atorvastatin [Lipitor] 40 mg PO HS 05/28/21 05/28/21 History Allergies Allergy/AdvReac Type Severity Reaction Status Date / Time No Known Allergies Allergy Verified 05/28/21 12:55 Physical Exam Vitals: Vital Signs Temp Pulse Resp BP Pulse Ox 05/28/21 14:17 98.1 F 64 17 153/83 99 05/28/21 11:13 88 18 142/88 98 Intake and Output 05/27/21 05/28/21 05/28/21 22:59 06:59 14:59 Other: Weight 67.2 kg Results CBC & Chem 7: 05/28/21 11:31 05/28/21 11:31 Labs: Abnormal Lab Results - Last 24 Hours (Table) 05/28/21 05/28/21 05/28/21 Range/Units 11:20 11:31 11:31 RBC 3.95 L (4.30-5.90) m/uL Hgb 12.9 L (13.0-17.5) gm/dL APTT 18.5 L (22.0-30.0) sec Sodium (137-145) mmol/L BUN (9-20) mg/dL Creatinine (0.66-1.25) mg/dL Glucose (74-99) mg/dL POC Glucose (mg/dL) 244 H (75-99) mg/dL 05/28/21 Range/Units 11:31 RBC (4.30-5.90) m/uL Hgb (13.0-17.5) gm/dL APTT (22.0-30.0) sec Sodium 136 L (137-145) mmol/L BUN 25 H (9-20) mg/dL Creatinine 1.41 H (0.66-1.25) mg/dL Glucose 241 H (74-99) mg/dL POC Glucose (mg/dL) (75-99) mg/dL
--- NOTE | 2021-05-28 16:09 | P.CNNES ---
History of Present Illness Consult date: 05/28/21 Requesting physician: Cody Green Reason for Consult: cva History of Present Illness: This is an 81-year-old gentleman with recent stroke over the left MCA (expressive aphasia), old right parietal, atrial fibrillation on Xarelto, history of pulmonary embolism 2, DVT, precancerous skin cancer, carcinoid tumor in the lower right lung status post lobectomy who was recently discharged from the Hospital on 05/27/2021 for recent stroke and presented back as a worsening of his speech. The patient is known to me and I saw the patient on this past recent admission. Patient stated that about 20-30 minutes prior to arrival to the hospital he's having difficulty forming words which was more than baseline. He denies of any weakness, numbness, visual disturbance, headache. Patient presented to our facility on 05/28/2021 around 11:10AM. I spoke with patient's daughter and she stated she was on the phone and had difficulty talking. He has not taken his aspirin or Xarelto yet since this episode happened early the morning and that as a result he was brought to the hospital. Of note as stated I personally evaluated the patient for his recent stroke and saw him last on 05/27/2021. He had an MRI which showed that he had left MCA stroke and I felt was over the left frontal parietal and temporal region and appeared embolic phenomena. Patient stated that he has history of atrial fibrillation and he is compliant taking the medication. The MRI showed also an old stroke over the right parietal region. I recommended to follow up with his the record changer Dr. Pham and further investigation regarding the strokes, PE and DVT. Patient was notified to take Xarelto for his A. fib and the what he was supposed to resume it today and to take aspirin 81 mg daily and continue Lipitor 40 mg daily. Patient was supposed to take the Xarelto later today. Please refer to my notes for further details. Some other workup in the hospital consisted of: Initial blood pressure is 142/88, heart rate of 88. Initial serum glucose is 244 and a creatinine is 1.41 initial serum glucose is 241 Otherwise rest of the chemistry panel is unremarkable. Rest of the labs are reviewed that. NIH stroke scale: 1 (expressive aphasia). CT of the head is reported as no acute intracranial hemorrhage or midline shift. There is mild to moderate diffuse cerebral atrophy and small vessel ischemic changes with area involving acute left-sided infarct on recent MRI as well seen on CT. No significant change from recent CT. I personally reviewed the CT and I agree with the finding. No IV TPA because improving and his symptoms. And the risks outweigh the benefit. Review of Systems Review of system: The 12 point system was reviewed and apparent positive and negative per HPI. 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; skin ca History of Any Multi-Drug Resistant Organisms: None Reported Past Surgical History: Hernia Repair Additional Past Surgical History / Comment(s): cataracts, cyst removed rt chest area and left neck area, pre skin cancer removed, 02-16-14 RT LOWER LOBECTOMY D/T CA Past Anesthesia/Blood Transfusion Reactions: No Reported Reaction Additional Past Anesthesia/Blood Transfusion Reaction / Comment(s): motion sickness years ago Past Psychological History: No Psychological Hx Reported Smoking Status: Never smoker Past Alcohol Use History: None Reported Past Drug Use History: None Reported - Past Family History Mother Family Medical History: Cancer Medications and Allergies Home Medications Medication Instructions Recorded Confirmed Type Albuterol Sulfate [Proair 2 puff INHALATION RT-Q4H PRN 09/17/18 05/28/21 History Respiclick] Multivitamins, Thera [Multivitamin 1 tab PO DAILY 09/17/18 05/28/21 History (formulary)] Tamsulosin [Flomax] 0.4 mg PO PC-SUPPER 09/17/18 05/28/21 History Rivaroxaban [Xarelto] 20 mg PO AC-SUPPER 12/30/19 05/28/21 History Aspirin 81 mg PO DAILY #30 tab 05/27/21 05/28/21 Rx Atorvastatin [Lipitor] 40 mg PO HS 05/28/21 05/28/21 History Allergies Allergy/AdvReac Type Severity Reaction Status Date / Time No Known Allergies Allergy Verified 05/28/21 12:55 Physical Examination - Vital Signs Vital Signs: Vital Signs Temp Pulse Resp BP Pulse Ox 05/28/21 15:00 68 144/91 98 05/28/21 14:30 74 153/83 99 05/28/21 14:17 98.1 F 64 17 153/83 99 05/28/21 14:00 157/83 96 05/28/21 13:30 80 142/73 96 05/28/21 13:00 74 138/68 97 05/28/21 12:30 75 159/84 98 05/28/21 12:00 83 140/66 99 05/28/21 11:30 78 98 05/28/21 11:13 88 18 142/88 98 Intake and Output 05/28/21 05/28/21 05/28/21 06:59 14:59 22:59 Other: Weight 67.2 kg GENERAL: The patient is lying in bed and is not in acute distress. CHEST: The heart rate is regular rate rhythm. No murmurs to auscultation. LUNG: Clear to auscultation bilaterally no wheezing noted throughout. Not labored breathing. ABDOMEN/GI: Bowel sounds present in all 4 quadrants. No tenderness to palpation throughout. NEUROLOGICAL: Higher mental function: The patient is awake, alert, oriented to self, place and time. Patient is following commands. Has expressive aphasia and some word finding difficulty. No neglect. Cranial nerves: The pupils are round, equal and reactive to light and accommodation. Visual vogt are full to confrontation throughout. Extraocular movement is intact no nystagmus is noted. Facial sensation is normal to touch throughout. The facial strength is normal throughout. Hearing is mildly decre ased bilaterally to hand rub. Tongue is midline and moved [id number] without any difficulty. No dysarthria is noted. Shoulder shrug is normal bilaterally. Motor: The strength is 5 over 5 throughout. Normal tone and bulk. Cerebellum: Normal finger to nose bilaterally. Sensation: Sensation is normal to touch throughout. Reflexes (right/left): 2+ throughout. Plantars are downgoing bilaterally. Results - Laboratory Findings CBC and BMP: 05/28/21 11:31 05/28/21 11:31 Abnormal Lab Findings: Abnormal Labs 05/28/21 05/28/21 05/28/21 11:20 11:31 11:31 RBC 3.95 L Hgb 12.9 L APTT 18.5 L Sodium BUN Creatinine Glucose POC Glucose (mg/dL) 244 H 05/28/21 11:31 RBC Hgb APTT Sodium 136 L BUN 25 H Creatinine 1.41 H Glucose 241 H POC Glucose (mg/dL) Assessment and Plan Assessment: This is an 81-year-old gentleman that had a recent stroke over the left MCA, expressive aphasia due to the stroke and was discharged on 05/27/2021 who presented because of worsening of his speech. Worsening of his aphasia (expressive). Probable TIA and rule out new stroke. Also rule out seizure since stroke can trigger seizure. NIH 1 on presentation. NO IV tpa since symptoms improving and risk outweigh benefit Patient had a recent stroke over the left MCA and had expressive aphasia and the stroke was over I felt left frontal parietal and temporal region it appeared embolic in nature. 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 I changed the MRI that was ordered from routine to stat. If there is no new stroke on the MRI I recommend to start anticoagulation (he was on Xarelto for A- fib but it was held because of recent stroke and was suppose be started back on it on 05/27/2021). Currently the patient is on Lipitor 80 mg daily I ordered a routine EEG to rule out any seizure or epileptiform discharges. I'll not start the patient on antiepileptic drug unless there is epileptiform discharges or seizure on the EEG 2-D echo with bubble study is ordered to the primary team is pending Cardiology team is consulted for this recurrent stroke. Consider MONI. Heme/onc team is consulted for recurrent strokes, PE Continue neuro checks On cardiac monitoring PT, OT and UNEMPLOYMENT [employer]EFITS CLAIMS TAKER is consulted Lipid panel is not needed since the patient had a recent lipid panel test We'll defer the rest of the medical management the primary team For DVT prophylaxis I started the patient on subcu heparin 5000 units every 12 hours. The plan is discussed with the patient and the ED team as well as the patient's daughter via phone Thank you for consultation. Dr. Merino will start neurology service tomorrow AM. Arthur Carrillo M.D. Neuro-hospitalist Time with Patient: Greater than 30
[2021-05-28] MEDS: ATORVASTATIN 80 MG TAB PO SCH ×2 (16:48→16:49)
[2021-05-28] MEDS: ASPIRIN 325 MG TAB PO STA ×2 (16:48→16:50)
[2021-05-28] MEDS: TAMSULOSIN 0.4 MG CAP.ER.24H PO SCH (18:31)
[2021-05-28] MEDS: HEPARIN SODIUM,PORCINE/PF 5,000 UNIT/0.5 ML SYRINGE SQ SCH (20:53)
[2021-05-29] MEDS ORDERED: ASPIRIN 325 MG TAB PO SCH (09:00)
[2021-05-29] MEDS: SODIUM CHLORIDE 0.9% 1,000 ML IV SCH ×2 (09:48→18:03)
[2021-05-29] MEDS: HEPARIN SODIUM,PORCINE/PF 5,000 UNIT/0.5 ML SYRINGE SQ SCH (09:49)
--- NOTE | 2021-05-29 10:01 | P.CRDCN ---
History of Present Illness Consult date: 05/29/21 History of present illness: History of Present Illness: The patient is an 81-year-old male with a history of paroxysmal atrial fibrillation, prior history of pulmonary embolism who has been anticoagulated, status post lobectomy who was in the hospital 2 days ago with speech disturbance went home and had another episode of slurred speech. He is back in the hospital again today his speech is back to normal. He denies any associated focal weakness. He denies any dizziness or palpitations. He has been in sinus mechanism since admission. An echocardiogram performed during the last admission showed a preserved systolic function with no significant valvular disease. Patient was supposed to restart Xarelto yesterday. He has been getting subcu heparin. He is usually active physically without any chest discomfort, dyspnea or dizziness. He denies any PND, orthopnea or peripheral edema. He had an MPI in June 2020 showed no evidence of stress induced ischemia. His CT angiogram showed no evidence of significant carotid disease. On admission he was on Flomax, aspirin and Lipitor and was supposed to start back Xarelto. Review of Systems: Respiratory: [No history of asthma, bronchitis or recent cough.] GI: [She had nausea and vomiting today. No history of peptic ulcer disease. No recent GI bleed.] : [No hematuria or dysuria.] Nervous System: He has the symptoms of speech disturbance and prior stroke Physical Examination: 147/63, heart rate in the 60s Head: [Normocephalic.] Eyes: [Sclerae nonicteric.] Neck: [Good carotid upstroke, no bruit, no jugular venous distention.] Lungs: [Clear to auscultation.] Heart: [Regular rate and rhythm, S1-S2, no S3, no rub. Systolic ejection murmur.] Abdomen: [Soft nontender, positive bowel sounds no organomegaly.] Extremities: [No edema, intact distal pulses.] Labs: EKG Sinus mechanism with no acute ST segment changes. BUN 25, creatinine 1.41. Hemoglobin 12.9. Troponin of 0.014 Impression: 1. Recent CVA with transient episode of speech disturbance, resolved 2. Prior history of paroxysmal atrial fibrillation, maintaining sinus mechanism 3. History of pulmonary embolism. 4. History of lobectomy 5. Chronic kidney disease Plan: 1. Restart Xarelto 2. Continue statin 3. Increase activity 4. If stable probable discharged home today to be evaluated as an outpatient for loop recorder placement and if needed MONI. 5. Thank you for this consult we will follow with you. 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; skin ca History of Any Multi-Drug Resistant Organisms: None Reported Past Surgical History: Hernia Repair Additional Past Surgical History / Comment(s): cataracts, cyst removed rt chest area and left neck area, pre skin cancer removed, 02-16-14 RT LOWER LOBECTOMY D/T CA Past Anesthesia/Blood Transfusion Reactions: No Reported Reaction Additional Past Anesthesia/Blood Transfusion Reaction / Comment(s): motion sickness years ago Past Psychological History: No Psychological Hx Reported Smoking Status: Never smoker Past Alcohol Use History: None Reported Past Drug Use History: None Reported - Past Family History Mother Family Medical History: Cancer, CVA/TIA Additional Family Medical History / Comment(s): breast cancer Medications and Allergies Home Medications Medication Instructions Recorded Confirmed Type Albuterol Sulfate [Proair 2 puff INHALATION RT-Q4H PRN 09/17/18 05/28/21 History Respiclick] Multivitamins, Thera [Multivitamin 1 tab PO DAILY 09/17/18 05/28/21 History (formulary)] Tamsulosin [Flomax] 0.4 mg PO PC-SUPPER 09/17/18 05/28/21 History Rivaroxaban [Xarelto] 20 mg PO AC-SUPPER 12/30/19 05/28/21 History Aspirin 81 mg PO DAILY #30 tab 05/27/21 05/28/21 Rx Atorvastatin [Lipitor] 40 mg PO HS 05/28/21 05/28/21 History Allergies Allergy/AdvReac Type Severity Reaction Status Date / Time No Known Allergies Allergy Verified 05/28/21 12:55 Physical Exam Vitals: Vital Signs Temp Pulse Pulse Resp BP BP Pulse Ox 05/29/21 03:25 97.7 F 56 L 16 147/63 96 05/29/21 00:00 98.3 F 71 18 147/65 95 05/28/21 20:00 98.1 F 82 16 140/67 94 L 05/28/21 15:00 68 144/91 98 05/28/21 14:30 74 153/83 99 05/28/21 14:17 98.1 F 64 17 153/83 99 05/28/21 14:00 157/83 96 05/28/21 13:30 80 142/73 96 05/28/21 13:00 74 138/68 97 05/28/21 12:30 75 159/84 98 05/28/21 12:00 83 140/66 99 05/28/21 11:30 78 98 05/28/21 11:13 88 18 142/88 98 Intake and Output 05/28/21 05/29/21 05/29/21 22:59 06:59 14:59 Intake Total 540 480 Balance 540 480 Intake: Oral 540 480 Other: # Voids 1 1 1 Weight 67.2 kg Results 05/28/21 11:31 05/28/21 11:31 Cardiac Enzymes 05/28/21 05/28/21 Range/Units 11:31 11:31 AST 39 (17-59) U/L Troponin I 0.014 (0.000-0.034) ng/mL Coagulation 05/28/21 Range/Units 11:31 PT 10.9 (9.0-12.0) sec APTT 18.5 L (22.0-30.0) sec CBC 05/28/21 Range/Units 11:31 WBC 5.9 (3.8-10.6) k/uL RBC 3.95 L (4.30-5.90) m/uL Hgb 12.9 L (13.0-17.5) gm/dL Hct 39.0 (39.0-53.0) % Plt Count 205 (150-450) k/uL Comprehensive Metabolic Panel 05/28/21 Range/Units 11:31 Sodium 136 L (137-145) mmol/L Potassium 4.2 (3.5-5.1) mmol/L Chloride 105 (98-107) mmol/L Carbon Dioxide 24 (22-30) mmol/L BUN 25 H (9-20) mg/dL Creatinine 1.41 H (0.66-1.25) mg/dL Glucose 241 H (74-99) mg/dL Calcium 9.1 (8.4-10.2) mg/dL AST 39 (17-59) U/L ALT 23 (4-49) U/L Alkaline Phosphatase 62 (38-126) U/L Total Protein 7.2 (6.3-8.2) g/dL Albumin 4.2 (3.5-5.0) g/dL Current Medications Generic Name Dose Route Start Last Admin Trade Name Freq PRN Reason Stop Dose Admin Atorvastatin Calcium 80 mg 05/28/21 15:00 05/28/21 16:49 Atorvastatin 80 Mg Tab PO 80 mg DAILY KARINE Administration Sodium Chloride 1,000 mls @ 100 mls/hr 05/28/21 12:30 05/29/21 09:48 Saline 0.9% IV 100 mls/hr .Q10H KARINE Administration Rivaroxaban 20 mg 05/29/21 17:30 Rivaroxaban 20 Mg Tab PO AC-SUPPER KARINE Protocol Tamsulosin HCl 0.4 mg 05/28/21 18:30 05/28/21 18:31 Tamsulosin 0.4 Mg Cap.Er.24h PO 0.4 mg PC-SUPPER KARINE Administration Intake and Output 05/28/21 05/29/21 05/29/21 22:59 06:59 14:59 Intake Total 540 480 Balance 540 480 Intake: Oral 540 480 Other: # Voids 1 1 1 Weight 67.2 kg 05/28/21 11:31 05/28/21 11:31
--- NOTE | 2021-05-29 12:47 | MR ---
EXAMINATION TYPE: MR brain wo con DATE OF EXAM: 05/29/2021 COMPARISON: MRI brain 3 days ago HISTORY: aphasia, stroke TECHNIQUE: Multiplanar, multisequence imaging of the brain and brainstem is performed without IV cont rast. FINDINGS: Diffusion weighted images demonstrate redemonstrates small focal areas of increased signal on diffusi on weighted images with diminished signal on ADC mapping involving posterior portions of the left fro ntal lobe in the anterior portions of the left parietal lobe with persistent T2 hyperintensity. No de finitive new areas of restricted diffusion identified. Largest area of involvement superficial voltage inspector ior left frontal lobe axial image 184 is fairly similar appearance to prior. Mild to moderate ventricular and sulcal prominence redemonstrated. Scattered foci of T2 hyperintensit y throughout the white matter again seen. Some larger subcortical lesions remain present. Midline structures demonstrate normal morphology. The craniocervical junction appears within normal limits. Normal vascular flow voids are present. The visualized sinuses are clear and the globes are i ntact. IMPRESSION: Persistent evolving multifocal acute infarcts in the posterior left frontal and the anter ior left parietal lobes. Background moderate diffuse cerebral atrophy and mild to moderate chronic sm all vessel ischemic change redemonstrated. No significant change from recent prior MRI. No new areas of acute infarct identified.
--- NOTE | 2021-05-29 14:32 | P.CONS ---
History of Present Illness - Reason for Consult Consult date: 05/29/21 Recurrent PE and Acute CVA Requesting physician: Cody Green - History of Present Illness This is a nice patient known to Dr. Lennon and last seen on 05/09/21. This is a very nice patient with presented with recurrent bronchitis,started in ,also in .he developed RLE DVT and had a chest CT scan on 06/24/2013,which revealed PE. Because of recurrent bronchitis,he had a repeat CT scan of the chest on 12/30/2013 which revealed a 3.5x3.4x1.4cm RLL mass,no PE,no hilar or me diastinal nodes,upper part of abdomen was negative. 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 As above. The patient was seen in the office in 01/22. He was referred for resection and had definitive surgery for his carcinoid. Six-month follow-up CAT scan after the PE had revealed no residual clot. He was taken off an ticoagulation after 1 year of treatment. It is not clear if he had any regular follow-up for his carcinoid. The patient did not follow-up in the office on 01/22. He was seen again in consultation at [facility] in 09/26. He had presented with progressive shortness of breath over the past [address] revealed bilateral PE. The patient was started on IV heparin. His Doppler showed persistent clot in the left popliteal and upper calf veins with. If low suggestive of a chronic process. CT of the chest, and subsequent abdomen and pelvis did not show any obvious malignancy. Chromogranin levels was elevated at 357, but serotonin level was actually lower than normal. CT scan did mention possible bulky appearance of the pancreatic head This current event appear to be unprovoked. Therefore lifelong anticoagulation was recommended. He was discharged on Xarelto He was then seen for his office follow-up on 10/30/18. He had w/u for carcinoid recurrence, with normal serotonin, and 24 hr urinary 5 HIAA, as well as ocetroscan. Chromogranin was still elevated, but this non specific in the presence of these other negative results. MRCP did not show any mass in the pancreas He discussed with his sister, and has decided not to proceed with hypercoag w/u He had repeat imaging done in 04/30 for a new baseline. CTA showed resolution of the clot. He had a persistent 3 cm opacity in the posterior right mid lung at the site of his initial surgery. This was stable from before. 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 He was thus placed on surveillance. as Doppler findings were stable, it was decided not to perform any more Dopplers after 05/01 in the absence of new symptoms. Follow-up CT scans in 05/02 noted possible new or more prominent 4 mm nodule in the right lower lobe. 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; skin ca History of Any Multi-Drug Resistant Organisms: None Reported Past Surgical History: Hernia Repair Additional Past Surgical History / Comment(s): cataracts, cyst removed rt chest area and left neck area, pre skin cancer removed, 02-16-14 RT LOWER LOBECTOMY D/T CA Past Anesthesia/Blood Transfusion Reactions: No Reported Reaction Additional Past Anesthesia/Blood Transfusion Reaction / Comm: motion sickness years ago Past Psychological History: No Psychological Hx Reported Smoking Status: Never smoker Past Alcohol Use History: None Reported Past Drug Use History: None Reported - Past Family History Mother Family Medical History: Cancer, CVA/TIA Additional Family Medical History / Comment(s): breast cancer Medications and Allergies Home Medications Medication Instructions Recorded Confirmed Type Albuterol Sulfate [Proair 2 puff INHALATION RT-Q4H PRN 09/17/18 05/28/21 History Respiclick] Multivitamins, Thera [Multivitamin 1 tab PO DAILY 09/17/18 05/28/21 History (formulary)] Tamsulosin [Flomax] 0.4 mg PO PC-SUPPER 09/17/18 05/28/21 History Rivaroxaban [Xarelto] 20 mg PO AC-SUPPER 12/30/19 05/28/21 History Aspirin 81 mg PO DAILY #30 tab 05/27/21 05/28/21 Rx Atorvastatin [Lipitor] 40 mg PO HS 05/28/21 05/28/21 History Allergies Allergy/AdvReac Type Severity Reaction Status Date / Time No Known Allergies Allergy Verified 05/28/21 12:55 Physical Exam Vitals: Vital Signs Temp Pulse Pulse Resp BP BP Pulse Ox 05/29/21 03:25 97.7 F 56 L 16 147/63 96 05/29/21 00:00 98.3 F 71 18 147/65 95 05/28/21 20:00 98.1 F 82 16 140/67 94 L 05/28/21 15:00 68 144/91 98 05/28/21 14:30 74 153/83 99 Intake and Output 05/28/21 05/29/21 05/29/21 22:59 06:59 14:59 Intake Total 540 480 Balance 540 480 Intake: Oral 540 480 Other: # Voids 1 1 1 Weight 67.2 kg - Constitutional General appearance: cooperative - EENT Eyes: poor dentition ENT: hard of hearing, NA/AT - Neck Neck: normal ROM - Respiratory Respiratory: bilateral: diminished - Cardiovascular Rhythm: regularly irregular - Gastrointestinal General gastrointestinal: soft - Integumentary Integumentary: pale - Neurologic non focal - Musculoskeletal Musculoskeletal: generalized weakness - Psychiatric Psychiatric: A&O x's 3 Results CBC & Chem 7: 05/28/21 11:31 05/28/21 11:31 CT Scan - head: report reviewed Assessment and Plan (1) Atrial fibrillation Current Visit: No Status: Acute Code(s): I48.91 - UNSPECIFIED ATRIAL FIBRILLATION SNOMED Code(s): 77764804 (2) Carcinoid tumor Current Visit: No Status: Acute Code(s): D3A.00 - BENIGN CARCINOID TUMOR OF UNSPECIFIED SITE SNOMED Code(s): 466395262 (3) DVT (deep venous thrombosis) Current Visit: No Status: Acute Code(s): I82.409 - ACUTE EMBOLISM AND T HOMBOS UNSP DEEP VN UNSP LOWER EXTREMITY SNOMED Code(s): 753399665 (4) Pulmonary embolism Current Visit: No Status: Acute Code(s): I26.99 - OTHER PULMONARY EMBOLISM WITHOUT ACUTE COR PULMONALE SNOMED Code(s): 01702431 Plan: Await cardiology input regarding evidence of PFO, if evidence is present than could be considered DOAC failure. If not then the addition of anti-pplatelet in conjunction should assist in future prevention. If hypercoagulable work-up has not been performed in office will order at follow-up, although he is hypercoagulable at baseline given his known carcinoid. Dr. Collins: I have performed the complete history and physical, and developed the above impression and plan, agree with dictation, dictated as a scribe.
--- NOTE | 2021-05-29 15:50 | P.PN ---
Subjective Progress Note Date: 05/29/21 Patient initially seen by Dr. Arthur Carrillo. Please refer to his note for details. Patient is an 81-year-old male came for recurrent episode of aphasia. He was recently admitted to the hospital on 05/25/2021, discharged on 05/27/2021. Patient was compliant with his Xarelto. Patient came back yesterday with recurrence of aphasia. Patient states that yesterday his daughter called him and his speech was so garbled. He was not able to form words that he wanted to say. He was slurring, garbled speech. It has improved, which he claims is about 60% back to baseline. Still some deficits with the speech. He lives in [facility]. Patient's Xarelto was put on hold after his first CVA on 05/25/2021. I reviewed his current and previous MRI of the brain. Telemetry monitoring showing sinus rhythm in 77. No other arrhythmia. Objective - Vital Signs Vital signs: Vital Signs Temp 97.7 F 05/29/21 03:25 Pulse 56 L 05/29/21 03:25 Resp 16 05/29/21 03:25 BP 147/63 05/29/21 03:25 Pulse Ox 96 05/29/21 03:25 Intake & Output 05/28/21 05/29/21 05/29/21 18:59 06:59 18:59 Intake Total 540 960 Balance 540 960 Weight 67.2 kg Intake: Oral 540 960 Other: # Voids 1 1 2 - Exam GENERAL: The patient is lying in bed and is not in acute distress. Subsequently patient was seen walking with his daughter in the hallway very normally. Patient has some skin lesion on the left side of the face. CHEST: The heart rate is regular rate rhythm. No murmurs to auscultation. LUNG: Clear to auscultation bilaterally no wheezing noted throughout. Not labored breathing. ABDOMEN/GI: Bowel sounds present in all 4 quadrants. No tenderness to palpation throughout. NEUROLOGICAL: Higher mental function: The patient is awake, alert, oriented to self, place and time. Patient knows he is in [facility] and it is May 2021 and that he is in [facility]. Patient is following commands. Patient has mild to moderate dysarthria, but no aphasia. He can name and repeat very well. His comprehension is intact. Cranial nerves: The pupils are round, equal and reactive to light and accommodation. Visual vogt are full to confrontation throughout. No neglect on double simultaneous stimulation. Extraocular movement is intact no nystagmus is noted. Facial sensation is normal to touch throughout. The facial strength is normal throughout. Hearing is mildly decreased bilaterally to hand rub. Tongue is midline and moved [id number] without any difficulty. No dysarthria is noted. Shoulder shrug is normal bilaterally. Motor: The strength is 5 over 5 throughout. Normal tone and bulk. Cerebellum: Normal finger to nose bilaterally. Sensation: Sensation is normal to touch throughout. Reflexes (right/left): 2+ throughout. Plantars are downgoing bilaterally. Gait: Patient walking normally in the hallway with his daughter. No balance issues. - Labs CBC & Chem 7: 05/28/21 11:31 05/28/21 11:31 Assessment and Plan Assessment: This is an 81-year-old gentleman that had a recent stroke over the left MCA, e xpressive aphasia due to the stroke and was discharged on 05/27/2021 who presented to the hospital the following day on 05/28/2021 because of worsening of his speech. Worsening of his aphasia (expressive). Probable due to recurrent ischemic stroke versus TIA. Old right parietal stroke Paroxysmal Atrial fibrillation on Xarelto that was held because of the stroke and was supposed to be restarted on it 05/28/2021, but came back with recurrent stroke as above. 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 EEG was normal, no epileptiform activity. No indication for antiepileptic medication. MRI of the brain revealed persistent evolving multifocal acute infarcts in the posterior left frontal and the anterior left parietal lobes. Background moderate diffuse cerebral atrophy and [id number] chronic small vessel ischemic change redemonstrated. No significant change from recent prior MRI. No new areas of acute infarct identified. CTA of head and neck from 05/25/2021 shows no significant stenosis or aneurysm. Continue Lipitor 80 mg daily Resume Xarelto. 2-D echo with bubble study apparently was canceled. Cardiology team input appreciated. They want to follow up patient as outp atient regarding possibility of loop recorder and/or MONI. Continue neuro checks On cardiac monitoring Continue speech therapy. We'll defer the rest of the medical management the primary team For DVT prophylaxis, the patient on Xarelto. Discussed with patient's daughter in detail. Neurologically clear.
--- NOTE | 2021-05-29 16:13 | EEG ---
ELECTROENCEPHALOGRAM REPORT DATE OF SERVICE: 05/29/2021 PREAMBLE: This is an 81-year-old male with CVA and aphasia. Rule out seizure activity. EEG FINDINGS: This is a 21-channel digital EEG recorded with video competent, utilizing 10/20 international system with referential and bipolar montages. Background consists of moderately well developed and regulated mixed frequencies of 10 to 11 hertz alpha, intermixed with some low-voltage fast frequency beta activity. Background seems to be reactive to eye opening and closing. Photic driving response was seen with some flash frequencies. Mild drowsiness was seen with appearance of bilaterally symmetric theta frequency rhythm, but deeper stages of sleep were not seen. No focal or generalized epileptiform activity was seen. EKG channel showed no obvious arrhythmia. IMPRESSION: This is a normal awake and drowsy EEG. No focal, lateralized or epileptiform activity was seen. MMSTEPHANIE / CHRISTINE: [id number] /
[2021-05-29] MEDS ORDERED: RIVAROXABAN 20 MG TAB PO SCH (17:30)
--- NOTE | 2021-05-29 17:40 | P.PN ---
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 Patient presented to the hospital on 05/28/21 with a chief complaint of worsening slurred speech and expressive aphasia status post recent CVA which resulted in hospitalization from 05/25 through 05/27 with MRI confirming acute infarcts. Patient was discharged home on 05/27/21 and returned to the hospital 05/28/21 secondary to return of slurred speech and word finding difficulties. In the emergency department patient underwent full evaluation. CT head was negative for acute intercranial hemorrhage or midline shift revealing mild to moderate diffuse cerebral atrophy and small vessel ischemic changes with areas of evolving acute left-sided infarct that was previously noted on recent MRI. CBC and CMP showing no significant abnormalities renal function slightly elevated appears to be patient's baseline with creatinine of 1.41 with baseline creatinine of 1.3. Troponin 0.014. Patient was admitted under hospitalist services with consultation to neurology and cardiology. Physical exam: Patient seen and fully evaluated at bedside. His speech is clear, however he reports continuing to have intermittent word finding difficulties. EEG was completed this morning and patient just returned from MRI. Patient eating lunch and denied having any difficulty swallowing or chewing. Patient's vital signs stable. He remains on atorvastatin and Xarelto. Cardiology evaluated patient and recommending continuation of anticoagulation and placement of loop recorder upon discharge with follow-up outpatient for evaluation for MONI. Patient currently denies having any headache, lightheadedness, dizziness, changes in vision or hearing, chest pain or palpitations, shortness of breath, or experiencing any numbness/tingling/weakness in his extremities. Vitals signs reviewed and stable. General: Nontoxic, no distress and appears stated age. Derm: Skin warm and dry, normal coloration for ethnicity. Head: Atraumatic, normocephalic and symmetric. Eyes: EOMs intact, no lid lag, and anicteric sclera Mouth: no lip lesions, mucus membranes moist Cardiovascular: regular rate and rhythm with normal S1S2, systolic murmur, positive posterior tibial pulses bilaterally, and cap refill < 2 seconds. Lungs: Respirations even, regular, and unlabored on room air. Lungs CTA bilaterally, no rhonchi, no rales, no wheezing, and no accessory muscle usage. Abdominal: soft, nontender to palpation, no guarding, no appreciable organomegaly Ext: ROM intact. No gross muscle atrophy, no edema, no contractures Neuro: Speech clear, face symmetrical and CN II-XII grossly intact with no noted focal neuro deficits Psych: Alert and oriented to person, place, time, and situation. Appropriate and pleasant affect. Assessment and Plan of Care: Acute ischemic CVA with waxing and waning of speech deficits -Neurology following -EEG completed pending results. -MRI revealing persistent evolving multifocal acute infarcts in the posterior left frontal and the anterior left parietal lobes with background moderate diff use cerebral atrophy and mild to moderate chronic small vessel ischemic changes, no reported significant changes from previous MRI completed 05/26/21. -Neuro checks -Cardiology consulted, recommending continuation of anticoagulant and discharge home with recorder and follow up outpatient for evaluation for possible MONI Paroxysmal atrial fibrillation History of PE -Continue anticoagulation with Xarelto. History of carcinoid tumor right lower lobe status post lobectomy in 2013, stable. CODE STATUS: full code DVT prophylaxis: Xarelto Discussed with: patient and RN Anticipated discharge date: likely tomorrow pending EEG results and clearance by neuro Anticipated discharge place: home A total of 36 minutes was spent on the care of this complex patient more than 50% of the time was spent in counseling and care coordination. Gera Mac NP rendered care for this patient independently, reviewed the findings and plan as documented in the note above. I did not physically speak with or examine the patient on this date. No new CVA on MRI likely just worsenin g of prior SX. Suggest discharge in AM Objective - Vital Signs Vital signs: Vital Signs Temp 97.7 F 05/29/21 03:25 Pulse 56 L 05/29/21 03:25 Resp 16 05/29/21 03:25 BP 147/63 05/29/21 03:25 Pulse Ox 96 05/29/21 03:25 Intake & Output 05/28/21 05/29/21 05/29/21 18:59 06:59 18:59 Intake Total 540 480 Balance 540 480 Weight 67.2 kg Intake: Oral 540 480 Other: # Voids 1 1 1 - Labs CBC & Chem 7: 05/28/21 11:31 05/28/21 11:31 Labs: Abnormal Lab Results - Last 24 Hours (Table) 05/28/21 05/28/21 05/28/21 Range/Units 11:20 11:31 11:31 RBC 3.95 L (4.30-5.90) m/uL Hgb 12.9 L (13.0-17.5) gm/dL APTT 18.5 L (22.0-30.0) sec Sodium (137-145) mmol/L BUN (9-20) mg/dL Creatinine (0.66-1.25) mg/dL Glucose (74-99) mg/dL POC Glucose (mg/dL) 244 H (75-99) mg/dL 05/28/21 Range/Units 11:31 RBC (4.30-5.90) m/uL Hgb (13.0-17.5) gm/dL APTT (22.0-30.0) sec Sodium 136 L (137-145) mmol/L BUN 25 H (9-20) mg/dL Creatinine 1.41 H (0.66-1.25) mg/dL Glucose 241 H (74-99) mg/dL POC Glucose (mg/dL) (75-99) mg/dL
[2021-05-29] MEDS: TAMSULOSIN 0.4 MG CAP.ER.24H PO SCH (18:04)
[2021-05-30] MEDS: SODIUM CHLORIDE 0.9% 1,000 ML IV SCH (04:31)
[2021-05-30] MEDS: ATORVASTATIN 80 MG TAB PO SCH (08:26)
--- NOTE | 2021-05-30 09:36 | P.PN ---
Subjective Progress Note Date: 05/30/21 PROGRESS NOTE The patient presents with speech disturbance. He had a recent CVA. He has a prior history of paroxysmal atrial fibrillation and has been maintained in sinus mechanism. He's feeling well this morning. Ambulating without difficulties. He continues to be in sinus mechanism. He has no episodes of atrial fibrillation. He has been restarted on anticoagulation. In addition to Xarelto 20 mg daily he is on Lipitor 80 mg daily. PHYSICAL EXAMINATION: Blood pressure 137/65 heart rate 63 LUNGS: [Clear to auscultation] HEART: [Regular rate and rhythm, S1, S2. No S3. systolic murmur at the base] ABDOMEN: [Soft, nontender, no organomegaly] EXTREMETIES: [No edema] IMPRESSION: 1. History of recent CVA with speech disturbance, back to baseline 2. Paroxysmal atrial ablation anticoagulated 3. Chronic kidney disease 4. Hyperlipidemia PLAN: 1. Continue present therapy 2. Probable discharged home today 3. Follow-up with Dr. Brito next week. Objective - Vital Signs Vital signs: Vital Signs Temp 96.7 F L 05/30/21 04:00 Pulse 63 05/30/21 04:00 Resp 18 05/30/21 04:00 BP 137/65 05/30/21 04:00 Pulse Ox 97 05/30/21 04:00 Intake & Output 05/29/21 05/30/21 05/30/21 18:59 06:59 18:59 Intake Total 1200 720 480 Balance 1200 720 480 Intake: Oral 1200 720 480 Other: # Voids 2 1 - Labs CBC & Chem 7: 05/28/21 11:31 05/28/21 11:31
[2021-05-30 09:38] VITALS: BP 166/97; PULSE 98; RESP 16; TEMP 97.7
--- NOTE | 2021-05-30 10:57 | P.DS ---
Providers Date of admission: 05/29/21 07:50 Expected date of discharge: 05/30/21 Attending physician: Víctor Nicole MD Consults: 05/28/21 12:23 Consult Physician Routine Consulting Provider: Arthur Carrillo Consult Reason/Comments: CVA Do you want consulting provider notified?: Already Contacted Consult Physician Routine Consulting Provider: Bogdan Brush Consult Reason/Comments: recurrent CVA Do you want consulting provider notified?: Yes Consult Physician Routine Consulting Provider: Kendell Lennon Consult Reason/Comments: PE, recurrent CVA Do you want consulting provider notified?: Yes Primary care physician: [facility] Course: Discharge Diagnosis: Recent ischemic CVA with dysarthria Paroxysmal atrial fibrillation History of PE History of carcinoid tumor Hospital Course: Patient is a very pleasant 81-year-old male with a past medical history of PE on anticoagulation with Xarelto, BPH, 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 Patient presented to the hospital on 05/28/21 with a chief complaint of worsening slurred speech and expressive aphasia status post recent CVA which resulted in hospitalization from 05/25 through 05/27 with MRI confirming acute infarcts. Patient was discharged home on 05/27/21 and returned to the hospital 05/28/21 secondary to return of slurred speech and word finding difficulties. In the emergency department patient underwent full evaluation. CT head was negative for acute intercranial hemorrhage or midline shift revealing mild to moderate diffuse cerebral atrophy and small vessel ischemic changes with areas of evolving acute left-sided infarct that was previously noted on recent MRI. CBC and CMP showing no significant abnormalities renal function slightly elevated appears to be patient's baseline with creatinine of 1.41 with baseline creatinine of 1.3. Troponin 0.014. Patient was admitted under hospitalist services with consultation to neurology and cardiology. Patient had an MRI that showed no change from the previous MRI completed on 05/26/2021. Patient was also seen by cardiology who recommended follow-up outpatient for loop recorder and possible MONI. Patient was cleared for discharge by both cardiology and neurology. At the time of discharge patient reported that his speech was improving. Patient was given contact information to call the speech therapist. Patient was instructed to follow cardiology. Patient is looking forward to going home. Patient seen and examined at bedside.[] General examination - Alert and Oriented 3 in NAD Heart - + S1S2 no murmurs Lungs - Clear to auscultation Abdomen soft NT ND +ve BS Extremities - No edema [facility] [facility] [facility] TECHNICIAN - Moving all 4 extremities spontaneously, dysarthria Psych - Calm and cooperative A total of [32] minutes of time were spent preparing this complex discharge summary . Patient Condition at Discharge: Stable Plan - Discharge Summary Discharge Rx Participant: No New Discharge Prescriptions: Continue Multivitamins, Thera [Multivitamin (formulary)] 1 tab PO DAILY Tamsulosin [Flomax] 0.4 mg PO PC-SUPPER Albuterol Sulfate [Proair Respiclick] 2 puff INHALATION RT-Q4H PRN PRN Reason: Shortness Of Breath Rivaroxaban [Xarelto] 20 mg PO AC-SUPPER Atorvastatin [Lipitor] 40 mg PO HS Aspirin 81 mg PO DAILY #30 tab Discharge Medication List Albuterol Sulfate [Proair Respiclick] 2 puff INHALATION RT-Q4H PRN 09/17/18 [History] Multivitamins, Thera [Multivitamin (formulary)] 1 tab PO DAILY 09/17/18 [History] Tamsulosin [Flomax] 0.4 mg PO PC-SUPPER 09/17/18 [History] Rivaroxaban [Xarelto] 20 mg PO AC-SUPPER 12/30/19 [History] Aspirin 81 mg PO DAILY #30 tab 05/27/21 [Rx] Atorvastatin [Lipitor] 40 mg PO HS 05/28/21 [History] Follow up Appointment(s)/Referral(s): Arthur Monique MD [Primary Care Provider] - 1-2 days Brody Brito MD [STAFF PHYSICIAN] - 1 Week Discharge Disposition: HOME SELF-CARE
--- NOTE | 2021-05-30 15:41 | P.PN ---
Subjective Progress Note Date: 05/30/21 Principal diagnosis: CVA, Hx PE In follow-up today patient is ambulating in the hallways independently. No significant shortness of breath, hemoptysis. He was resumed on Xarelto yesterday evening. He is on aspirin. Objective - Vital Signs Vital signs: Vital Signs Temp 97.7 F 05/30/21 08:00 Pulse 98 05/30/21 08:00 Resp 16 05/30/21 08:00 BP 166/97 05/30/21 08:00 Pulse Ox 97 05/30/21 08:00 Intake & Output 05/29/21 05/30/21 05/30/21 18:59 06:59 18:59 Intake Total 1200 720 480 Balance 1200 720 480 Intake: Oral 1200 720 480 Other: Voiding Method Toilet # Voids 2 1 1 - Constitutional General appearance: Present: average body habitus, cooperative, no acute distress - EENT Eyes: Present: anicteric sclerae, EOMI ENT: Present: hearing grossly normal - Respiratory Respiratory: bilateral: CTA - Cardiovascular Rhythm: regular Heart sounds: normal: S1, S2 Abnormal Heart Sounds: Absent: systolic murmur, diastolic murmur, rub, S3 Gallop, S4 Gallop, click, other - Gastrointestinal General gastrointestinal: Present: normal bowel sounds, soft - Integumentary Integumentary Comment(s): scaly, thickened skin on the face and neck - Neurologic Neurologic: Present: CNII-XII intact - Musculoskeletal Musculoskeletal: Present: gait normal - Psychiatric Psychiatric: Present: A&O x's 3, appropriate affect, intact judgment & insight - Labs CBC & Chem 7: 05/28/21 11:31 05/28/21 11:31 Assessment and Plan (1) Cerebrovascular accident (CVA) Narrative/Plan: Mgmt per Neurology Status: Acute Priority: High Code(s): I63.9 - CEREBRAL INFARCTION, UNSPECI FIED SNOMED Code(s): 199953861 (2) Pulmonary embolism Status: Chronic Priority: Medium Code(s): I26.99 - OTHER PULMONARY EMBOLISM WITHOUT ACUTE COR PULMONALE SNOMED Code(s): 88838255 Plan: Pending outpatient bubble study to evaluate for possible PFO. Per Dr. Lennon, if patient has a PFO then it would be considered failure of Xarelto if patient developed a CVA while on anticoagulation. If no PFO then this would not be deemed a Xarelto failure as CVA is arterial clot, and aspirin should be added to the patient's medication regimen for arterial antiplatelet therapy. Patient is to follow up with [facility]asket [facility] after being seen by the Intelligence Specialist. We will also order labs for antiphospholipid antibodies outpatient.
== END 2021-05-30 13:08 | disposition home or self-care (01) | DRG 66 ==
LOC: EC 11:10 → 3SCARD 12:22 → OBSVTOIN 05-29 07:50
PROVIDERS: ADMIT Internal Medicine; ATTEND Internal Medicine
DX: I63.412 Cerebral infarction due to embolism of left middle cerebral artery (principal); R47.1 Dysarthria and anarthria; R47.01 Aphasia; E78.5 Hyperlipidemia, unspecified; I48.0 Paroxysmal atrial fibrillation; J40 Bronchitis, not specified as acute or chronic; N18.9 Chronic kidney disease, unspecified; N40.0 Benign prostatic hyperplasia without lower urinary tract symptoms; R29.701 NIHSS score 1; Z79.01 Long term (current) use of anticoagulants; Z79.82 Long term (current) use of aspirin; Z79.899 Other long term (current) drug therapy; Z80.3 Family history of malignant neoplasm of breast; Z82.3 Family history of stroke; Z82.49 Family history of ischemic heart disease and other diseases of the circulatory system; Z85.828 Personal history of other malignant neoplasm of skin; Z86.711 Personal history of pulmonary embolism; Z86.73 Personal history of transient ischemic attack (TIA), and cerebral infarction without residual deficits; Z87.891 Personal history of nicotine dependence; Z90.2 Acquired absence of lung [part of]; Z98.49 Cataract extraction status, unspecified eye; Z87.09 Personal history of other diseases of the respiratory system; Z80.9 Family history of malignant neoplasm, unspecified; Z86.718 Personal history of other venous thrombosis and embolism
CPT/HCPCS: 36415; 70450; 70551; 80053; 84484; 85025; 85610; 85730; 93005; 95816; 99285

== ENCOUNTER → 2021-11-07 | Outpatient (CLI) | payer MEDICARE ==
--- NOTE | 2021-11-07 12:38 | CT ---
EXAMINATION TYPE: CT chest w con CT DLP: 540 mGycm, Automated exposure control for dose reduction was used. DATE OF EXAM: 11/07/2021 12:05 PM COMPARISON: Multiple CTs of the chest with most recent on 04/19/2021 CLINICAL INDICATION:Male, 81 years old with history of R91.1 lung nodule; TECHNIQUE: Multiple axial images were obtained through the chest. Sagittal and coronal reformats were created for review. Contrast used:70 mL of Isovue 300 with IV Contrast, none. Oral contrast used: none. FINDINGS: LUNGS/ PLEURA: There is small right superior pneumothorax. Similar scarring streaky atelectasis barrios es within the right lung apex. Postsurgical changes to the right lung are present. Similar soft tissu e along the medial aspect of the lower thorax near the diaphragm measuring 5.7 x 2.4 cm. The adjacent calcified pulmonary nodule remains present measuring up to 19 mm similar to prior. Prior nodular-like area again is not significantly changed measuring 4-5 mm series 4 image 40 series 6 image 32 series 5 image 62. AIRWAY: Patent and unremarkable. HEART: Size within normal limits.Increased density within the coronary arteries may relate to scleros is versus vascular stents. MEDIASTINUM: No gross evidence of adenopathy. VASCULATURE: No aortic aneurysm. The pulmonary trunk measures up to 3.4 cm. Descending thoracic aort a is felt to be within normal limits when measured orthogonally. MUSCULOSKELETAL: No acute osseous abnormalities, similar multilevel disc degeneration changes through out the spine. Post surgical changes to the right ribs. SOFT TISSUES/LYMPH NODES: Unremarkable. LOWER NECK: No significant findings. UPPER ABDOMEN: No significant findings. Findings message communicated to Dr. Kendell Lennon MD on 11/07/2021 12:[address] Cody Guzman via [employer]. IMPRESSION: 1. Postsurgical changes with similar right pulmonary apical scarring and right lower lobe pleural th ickening/scarring. The right lower lobe partially calcified pulmonary nodule appears similar to prior on 04/19/2021. The 4 mm pulmonary nodule seen on prior's felt to be stable. Additional short-term foll ow-up in 6 months is recommended to ensure stability. 2. Small right pneumothorax anteriorly is new from 04/19/2021. 3. Similar scarring and streaky atelectasis within the right lung apex. 4. Similar pulmonary hypertension suggested.
== END | disposition home or self-care (01) ==
LOC: RADCTMAIN 10:31
PROVIDERS: ATTEND Internal Medicine Hematology & Oncology
DX: R91.1 Solitary pulmonary nodule (principal)
CPT/HCPCS: 82565; 84520; 71260; 36415; Q9967

== ENCOUNTER 2021-12-03 02:17 | Emergency (ER) | payer MEDICARE ==
[2021-12-03 02:30] VITALS: RESP 16
[2021-12-03 03:04] LABS: Basophils # (A) 0.1 k/uL (0-0.2); Basophils % (A) 2 %; Eosinophils # (A) 0.5 k/uL (0-0.7); Eosinophils % (A) 8 %; HGB 12.8 gm/dL (13.0-17.5); Lymphocytes # (A) 1.5 k/uL (1.0-4.8); Lymphocytes % (A) 24 %; MCHC 33.7 g/dL (31.0-37.0); MCV 98.1 fL (80.0-100.0); Mean Platelet Volume 8.2; Monocytes # (A) 0.4 k/uL (0-1.0); Monocytes % (A) 6 %; Neutrophils # (A) 3.6 k/uL (1.3-7.7); Neutrophils % (A) 58 %; Platelet Count 163 k/uL (150-450); RBC 3.87 m/uL (4.30-5.90); RDW 12.6 % (11.5-15.5); WBC 6.2 k/uL (3.8-10.6)
[2021-12-03 03:13] LABS: Albumin 4.4 g/dL (3.5-5.0); Calcium 9.4 mg/dL (8.4-10.2); Magnesium 2.1 mg/dL (1.6-2.3); Potassium 4.5 mmol/L (3.5-5.1); Total Bilirubin 0.6 mg/dL (0.2-1.3); Total Protein 6.9 g/dL (6.3-8.2)
[2021-12-03 03:21] LABS: INR 1.3 (<1.2); Partial Thromboplastin Time 32.7 sec (22.0-30.0); Prothrombin Time 13.5 sec (9.0-12.0)
--- NOTE | 2021-12-03 04:00 | XR ---
EXAMINATION TYPE: XR chest 2V DATE OF EXAM: 12/03/2021 COMPARISON: NONE HISTORY: Chest pain TECHNIQUE: 2 view FINDINGS: Heart is normal. There is no heart failure. There is pleural thickening in the right upper lobe with volume loss. Trachea is deviated to the right side. Left lung is clear. No heart failure. T here is mild blunting right costophrenic angle. IMPRESSION: Pleural and pulmonary scarring right upper lobe with volume loss that has progressed comp ared to old exam. Mild pleural scarring right lung base without change. Normal heart.
--- NOTE | 2021-12-03 06:03 | ED ---
General Adult HPI - General Chief complaint: ENT Stated complaint: Coughing up blood Time Seen by Provider: 12/03/21 02:29 Source: patient Mode of arrival: ambulatory Limitations: no limitations - History of Present Illness Initial comments: This patient is an 81-year-old man who presents to have evaluation after he had coughing with small amount of blood. The patient initially uncertain if this had been related to a little bit of no nasal bleeding or if it was related to something in his chest. He stated that it sounded like his breathing was gur gling so he felt he should be checked. He did not have any fever or chills. No chest pain. No dyspnea or diaphoresis. No hematemesis. No change in bowel movements. -: minutes(s) Severity scale (1-10): 0 Consistency: now resolved Improves with: none Worsens with: none Associated Symptoms: cough Treatments Prior to Arrival: none - Related Data Home Medications Medication Instructions Recorded Confirmed Albuterol Sulfate [Proair 2 puff INHALATION RT-Q4H PRN 09/17/18 05/28/21 Respiclick] Multivitamins, Thera [Multivitamin 1 tab PO DAILY 09/17/18 05/28/21 (formulary)] Tamsulosin [Flomax] 0.4 mg PO PC-SUPPER 09/17/18 05/28/21 Rivaroxaban [Xarelto] 20 mg PO AC-SUPPER 12/30/19 05/28/21 Atorvastatin [Lipitor] 40 mg PO HS 05/28/21 05/28/21 Previous Rx's Medication Instructions Recorded Aspirin 81 mg PO DAILY #30 tab 05/27/21 Allergies Allergy/AdvReac Type Severity Reaction Status Date / Time No Known Allergies Allergy Verified 12/03/21 02:26 Review of Systems ROS Statement: Those systems with pertinent positive or pertinent negative responses have been documented in the HPI. ROS Other: All systems not noted in ROS Statement are negative. Constitutional: Denies: fever, chills ENT: Denies: throat pain Respiratory: Reports: cough, hemoptysis. Denies: dyspnea, wheezes Cardiovascular: Denies: chest pain, palpitations, orthopnea, edema, syncope Gastrointestinal: Denies: abdominal pain, nausea, vomiting, diarrhea Genitourinary: Denies: dysuria, hematuria Musculoskeletal: Denies: back pain Skin: Denies: rash Neurological: Denies: headache, weakness, numbness 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; skin ca History of Any Multi-Drug Resistant Organisms: None Reported Past Surgical History: Hernia Repair Additional Past Surgical History / Comment(s): cataracts, cyst removed rt chest area and left neck area, pre skin cancer removed, 02-16-14 RT LOWER LOBECTOMY D/T CA Past Anesthesia/Blood Transfusion Reactions: No Reported Reaction Additional Past Anesthesia/Blood Transfusion Reaction / Comment(s): motion sickness years ago Past Psychological History: No Psychological Hx Reported Smoking Status: Never smoker Past Alcohol Use History: None Reported Past Drug Use History: None Reported - Past Family History Mother Additional Family Medical History / Comment(s): breast cancer General Exam Limitations: no limitations General appearance: alert, in no apparent distress Head exam: Present: atraumatic, normocephalic Eye exam: Present: normal appearance. Absent: scleral icterus, conjunctival injection ENT exam: Present: normal oropharynx Neck exam: Present: normal inspection Respiratory exam: Present: normal lung sounds bilaterally, rhonchi. Absent: respiratory distress, wheezes, rales, stridor, accessory muscle use, decreased breath sounds, prolonged expiratory Cardiovascular Exam: Present: regular rate, normal rhythm, normal heart sounds. Absent: systolic murmur, diastolic murmur, rubs, gallop GI/Abdominal exam: Present: soft. Absent: distended, tenderness, guarding, rebound, rigid Extremities exam: Present: normal inspection, normal capillary refill. Absent: pedal edema, calf tenderness Back exam: Present: normal inspection. Absent: CVA tenderness (R), CVA tenderness (L) Neurological exam: Present: alert Skin exam: Present: warm, dry, intact, normal color. Absent: rash Course Vital Signs 12/03/21 12/03/21 02:27 06:36 Temperature 98.3 F 97.7 F Pulse Rate 53 L 77 Respiratory 16 16 Rate Blood Pressure 173/97 147/80 O2 Sat by Pulse 96 97 Oximetry Medical Decision Making - Medical Decision Making This patient is an 81-year-old man with small amount of hemoptysis. The patient's workup only shows very minimal anemia. He is observed in number of hours in the emergency department with no further hemoptysis. No epistaxis. Patient is feeling well and would like to go home and follow-up. We discussed appropriate further care and follow-up as well as return parameters. - Lab Data Result diagrams: 12/03/21 02:53 12/03/21 02:53 Lab Results 12/03/21 12/03/21 12/03/21 Range/Units 02:53 02:53 02:53 WBC 6.2 (3.8-10.6) k/uL RBC 3.87 L (4.30-5.90) m/uL Hgb 12.8 L (13.0-17.5) gm/dL Hct 38.0 L (39.0-53.0) % MCV 98.1 (80.0-100.0) fL MCH 33.0 (25.0-35.0) pg MCHC 33.7 (31.0-37.0) g/dL RDW 12.6 (11.5-15.5) % Plt Count 163 (150-450) k/uL MPV 8.2 Neutrophils % 58 % Lymphocytes % 24 % Monocytes % 6 % Eosinophils % 8 % Basophils % 2 % Neutrophils # 3.6 (1.3-7.7) k/uL Lymphocytes # 1.5 (1.0-4.8) k/uL Monocytes # 0.4 (0-1.0) k/uL Eosinophils # 0.5 (0-0.7) k/uL Basophils # 0.1 (0-0.2) k/uL PT 13.5 H (9.0-12.0) sec INR 1.3 H (<1.2) APTT 32.7 H (22.0-30.0) sec Sodium 138 (137-145) mmol/L Potassium 4.5 (3.5-5.1) mmol/L Chloride 104 (98-107) mmol/L Carbon Dioxide 22 (22-30) mmol/L Anion Gap 12 mmol/L BUN 31 H (9-20) mg/dL Creatinine 1.32 H (0.66-1.25) mg/dL Est GFR (CKD-EPI)AfAm 58 (>60 ml/min/1.73 sqM) Est GFR (CKD-EPI)NonAf 50 (>60 ml/min/1.73 sqM) Glucose 93 (74-99) mg/dL Calcium 9.4 (8.4-10.2) mg/dL Magnesium 2.1 (1.6-2.3) mg/dL Total Bilirubin 0.6 (0.2-1.3) mg/dL AST 23 (17-59) U/L ALT 23 (4-49) U/L Alkaline Phosphatase 73 (38-126) U/L Troponin I (0.000-0.034) ng/mL Total Protein 6.9 (6.3-8.2) g/dL Albumin 4.4 (3.5-5.0) g/dL 12/03/21 Range/Units 02:53 WBC (3.8-10.6) k/uL RBC (4.30-5.90) m/uL Hgb (13.0-17.5) gm/dL Hct (39.0-53.0) % MCV (80.0-100.0) fL MCH (25.0-35.0) pg MCHC (31.0-37.0) g/dL RDW (11.5-15.5) % Plt Count (150-450) k/uL MPV Neutrophils % % Lymphocytes % % Monocytes % % Eosinophils % % Basophils % % Neutrophils # (1.3-7.7) k/uL Lymphocytes # (1.0-4.8) k/uL Monocytes # (0-1.0) k/uL Eosinophils # (0-0.7) k/uL Basophils # (0-0.2) k/uL PT (9.0-12.0) sec INR (<1.2) APTT (22.0-30.0) sec Sodium (137-145) mmol/L Potassium (3.5-5.1) mmol/L Chloride (98-107) mmol/L Carbon Dioxide (22-30) mmol/L Anion Gap mmol/L BUN (9-20) mg/dL Creatinine (0.66-1.25) mg/dL Est GFR (CKD-EPI)AfAm (>60 ml/min/1.73 sqM) Est GFR (CKD-EPI)NonAf (>60 ml/min/1.73 sqM) Glucose (74-99) mg/dL Calcium (8.4-10.2) mg/dL Magnesium (1.6-2.3) mg/dL Total Bilirubin (0.2-1.3) mg/dL AST (17-59) U/L ALT (4-49) U/L Alkaline Phosphatase (38-126) U/L Troponin I 0.018 (0.000-0.034) ng/mL Total Protein (6.3-8.2) g/dL Albumin (3.5-5.0) g/dL Disposition Clinical Impression: Hemoptysis Disposition: HOME SELF-CARE Instructions (If sedation given, give patient instructions): Coughing Up Blood (Hemoptysis) (ED) Is patient prescribed a controlled substance at d/c from ED?: No Referrals: Arthur Monique MD [Primary Care Provider] - 1-2 days
[2021-12-03 07:12] VITALS: BP 147/80; PULSE 77; TEMP 97.7
== END 2021-12-03 06:36 | disposition home or self-care (01) ==
LOC: EC 02:17
DX: R04.2 Hemoptysis (principal); I48.91 Unspecified atrial fibrillation; Z86.718 Personal history of other venous thrombosis and embolism; Z79.82 Long term (current) use of aspirin; Z79.51 Long term (current) use of inhaled steroids; Z79.899 Other long term (current) drug therapy
CPT/HCPCS: 36415; 71046; 80053; 83735; 84484; 85025; 85610; 85730; 93005; 99284